=== PATIENT | female | born 1990 | race Caucasian/White ===

== ENCOUNTER 2018-06-04 15:53 | Outpatient (CLI) | payer BC, SELFPAY ==
[2018-06-04 20:14] LABS: TSH (W/Ref FT4) 1.22 uIU/mL (0.358-3.74)
[2018-06-04 20:42] LABS: HCG Quant, Pregnancy < 1 mIU/mL (1-3)
== END 2018-06-04 16:13 ==
PROVIDERS: PCP Family Medicine; Visit Provider Nurse Practitioner Women's Health
DX: N93.9 Abnormal uterine and vaginal bleeding, unspecified (principal)
CPT/HCPCS: 36415; 84443; 84702

== ENCOUNTER 2018-06-17 01:22 | Outpatient (CLI) | payer BC, SELFPAY ==
--- NOTE | 2018-06-17 07:36 | DI.RAD_ITS ---
SYMPTOM/DIAGNOSIS: UTERINE TENDERNESS, ABNL UTERINE BLEEDING N85.2, N93.9, N94.9 HYPERTROPHY OF UTERUS PELVIC ULTRASOUND: Transabdominal and transvaginal examination was performed. The uterus measures 8.7 cm long x 3.8 cm AP x 5.2 cm transverse. The endometrium is thickened and irregular measuring 2.0 cm in thickness. There does appear to be no abnormal blood flow. The right ovary measures 4.8 x 3.2 x 3.6 cm. There is normal blood flow. No evidence of torsion seen. The left ovary measures 4.4 x 1.8 x 3.7 cm. Small follicular cysts are present. There is normal blood flow. No evidence of torsion. No free pelvic fluid or hydronephrosis is identified. IMPRESSION: Thickened irregular endometrial stripe measuring 2.0 cm. Follow up is recommended.
== END 2018-06-17 01:42 ==
PROVIDERS: PCP Family Medicine; Visit Provider Nurse Practitioner Women's Health
DX: N94.89 Other specified conditions associated with female genital organs and menstrual cycle (principal); N93.8 Other specified abnormal uterine and vaginal bleeding; N94.9 Unspecified condition associated with female genital organs and menstrual cycle; N85.2 Hypertrophy of uterus
CPT/HCPCS: 76830; 76856

== ENCOUNTER 2018-06-18 14:51 | Outpatient (CLI) | payer BC, SELFPAY ==
[2018-06-18 15:32] LABS: HCT 38.5 % (36.0-46.0); HGB 13.5 g/dL (12.0-15.5); Mean Corp. HGB Concentration 35.1 g/dL (32.0-36.0); Mean Corpuscular Hemoglobin 31.3 pg (27.0-33.0); Mean Corpuscular Volume 89.3 fL (80-95); Mean Platelet Volume 10.2 fL (8.0-11.0); Platelet Count 189 x1000/uL (130-400); RBC 4.31 m/cumm (4.00-5.20); RBC Distribution Width 14.1 % (11.7-14.6); White Blood Cell Count 13.45 k/cumm (4.4-10.8)
[2018-06-18 15:46] LABS: PTT Activated 23.6 sec (21.0-31.4)
[2018-06-18 16:14] LABS: TSH 0.87 uIU/mL (0.358-3.74)
[2018-06-18 16:26] LABS: HCG Qual (Serum) Negative
[2018-06-21 16:34] LABS: Coag Factor VIII Activity Assa 106 % (55 - 200); von Willebrand Factor Activity 65 % (55 - 200); von Willebrand Factor Ag 72 % (55 - 200)
== END 2018-06-18 15:11 ==
PROVIDERS: PCP Family Medicine; Visit Provider Obstetrics & Gynecology
DX: N92.1 Excessive and frequent menstruation with irregular cycle (principal)
CPT/HCPCS: 36415; 85027; 85240; 85245; 84443; 84703; 85246; 85247; 85730

== ENCOUNTER 2018-06-22 07:53 | Day surgery (SDC) | payer BC, SELFPAY ==
[2018-06-22 08:00] VITALS: BP 120/80; PULSE 80; RESP 17; TEMP 36.7; O2SAT 98
[2018-06-22] MEDS: Lactated Ringers 1,000 ML 125 ML IV (08:30)
[2018-06-22 08:57] LABS: HCT 39.1 % (36.0-46.0); HGB 13.6 g/dL (12.0-15.5)
[2018-06-22 09:43] LABS: HCG Qual (Serum) Negative
[2018-06-22] MEDS: Lidocaine 2% Multi-Dose 50 ML VIAL (10:30)
--- NOTE | 2018-06-22 10:44 | ENDOMET_PTH ---
PATIENT: Keysha Dhaliwal LOC: [facility] U#:[id number] AGE/SX: 28/F ROOM: RE06/22/[address]: Cynthia Garrido MD : 1990 BED: DIS: 06/22/2018 SPEC #: [id number] RECD: 06/22/18 12:43 STATUS: LIZETTE REQ #: [id number] PROSPER: 06/22/18 10:[address]: Cynthia Garrido DEPT: Surgical Specimen RECD BY: Rosalina Demarco ENTERED: 06/22/18 12:44 SP TYPE: Endomet OTHR DR: Delmi Acevedo Tissues: 1 - ENDOMETRIUM BX/CURRETTE Procedures: GROSS AND MICRO LEVEL 4 Comments: [id number]
[2018-06-22] MEDS: Silver Nitrate Stick 1 EACH (10:48)
--- NOTE | 2018-06-22 11:05 | PDOC.DSDIS_ITS ---
Discharge Plan Disposition Patient Disposition: HOME Condition: Stable Discharge Details Reason For Visit: NANDO Attending Provider: Cynthia Garrido Primary Care Provider: Delmi Acevedo Home Meds and New Rx's Prescriptions: Continued PNV cmb#[id number] fumarate-FA [] 1 EACH tablet 1 ea PO HS RF: 0 ibuprofen 600 MG tablet 600 mg PO Q6H PRN Qty: 60 RF: 1 famotidine [Pepcid AC] 10 MG tablet 10 mg PO DAILY RF: 0 Discontinued tranexamic acid 650 mg Tablet 650 mg PO TID RF: 0 Discharge Instructions Additional Instructions: Postoperative Instructions Outpatient Gynecology * Because there will be medication in your system for the next 24 hours, you may feel a little sleepy. Your coordination will be affected. Therefore: Do not drive or operate dangerous equipment for 24 hours. Do not drink alcoholic beverages for 24 hours (not even beer). Plan to go home and rest for the day. * Rest, drink liquids and eat lightly for the rest of the day. Do not plan to return to normal activity for two full days. Some women require 5-7 days to feel 100 percent. * Arrange to have someone stay with you for the rest of the day. You should arrange for child care center assistant director on the day of surgery. * If you have incisions, remove the bandage in 24 hours. * You may have a sore throat or hoarseness after surgery. This usually lasts a short time and is relieved by drinking liquids. If hoarseness persists longer than 24 hours, please contact the anesthesia department by calling the hospital. * Take Tylenol or Advil for cramping. If that does not work, you may be too active so try cutting back on your activities. You may use up to 3 Advil every (4) four to (6) six hours. Use the prescription medication in between doses of Advil if needed. * You should be able to urinate as usual following the surgery. * Any form of surgery can cause your menstrual cycle to become irregular. If you have had a D and C you may spot for a week after surgery and your next period will start in (4) four to (6) six weeks. * If you have had the sterilization procedure no follow-up appointment is necessary. For other procedures you need a follow-up appointment (4) four to (6) six weeks following surgery. Please call the office for an appointment. * If you had a Laparascopic procedure there are no restrictions on douching, tampons, intercourse or tub baths. If you had any vaginal procedure you may not use tampons, have intercourse or douche for 2 weeks. you may take a show er or bath. * Please report any of the following conditions or any questions regarding your condition to your doctor and the Day Surgery Unit: Increased drainage or foul smelling drainage. Temperature of 101 F or above. Excessive pain. * If you are unable to contact your doctor, contact the hospital at [phone]. * Continue all your regular medications unless directed otherwise. Revised 12/10/10 Stand Alone Forms: DSU Post Gynecology Surgery Referrals: Cytnhia Garrido [ [facility] STAFF PHYSICIAN] - Activity:: Activity as Tolerated Shower/Bathe:: 24 hours Diet:: As Tolerated Discharge Orders Discharge Orders: Discharge Order (Routine); Ordered 06/22/18 Ordered By: Cynthia Garrido
[2018-06-22 11:35] VITALS: BP 120/84; PULSE 70; RESP 16; TEMP 36.5; O2SAT 100
--- NOTE | 2018-06-22 12:08 | ROE_ITS ---
DATE OF PROCEDURE: June 22, 2018 PREOPERATIVE DIAGNOSIS: Dysfunctional uterine bleeding. POSTOPERATIVE DIAGNOSIS: Same. PROCEDURE: Operative hysteroscopy D and C SURGEON: Cynthia Garrido M.D. ANESTHESIA: Monitored Anesthesia Care COMPLICATIONS: None. ESTIMATED BLOOD LOSS: Less than 10 cc's FLUIDS: 600 cc's LR HYSTEROSCOPIC FLUID: Total hysteroscopic fluid use 300 cc's FINDINGS: Dense, proliferative endometrium without fibroid or polyp. SPECIMENS: Endometrial curettings. PROCEDURE: The patient was taken to the Operating Room where she was properly identified. She was t hen placed on the operating table in a dorsal supine position. Anesthesia was induced without diffic ulty. She was then placed in the dorsal lithotomy position, prepped and draped in a normal sterile f ashion. A formal time-out procedure was then performed, confirming patient and procedure. A Hartman c atheter was then used to drain the bladder of clear urine. A bivalved speculum was placed. The cervix was visualized, grasped on the anterior lip with a single -toothed tenaculum. A paracervical block with 2% lidocaine plain was made and the cervix was dilated with the Wilkins dilators to allow the introduction of the hysteroscope into the uterine cavity. Once the hysteroscope was introduced without difficulty into the uterine cavity, a thorough inspection en sued. Both ostia were seen. There was no evidence of fibroid or polyp, but there was a densely thic kened, proliferative endometrium. The hysteroscope was removed from the uterus. A sharp curettage w as then performed to a good cry. The endometrial curettings were sent to pathology for permanent audie luation. The tenaculum was removed from the anterior cervical lip. Silver nitrate and pressure was applied to achieve hemostasis. All equipment was removed from the vagina. Sponge, lap, needle and i nstrument counts were correct x 2. The patient was taken to recovery in stable condition. cc: Cynthia Garrido M.D.
== END 2018-06-22 11:56 | disposition home or self-care (01) ==
PROVIDERS: PCP Family Medicine; Visit Provider Obstetrics & Gynecology
PROC: 0UDB8ZZ Extraction of Endometrium, Via Natural or Artificial Opening Endoscopic (ICD-10-PCS; CPT 58558; principal; 2018-06-22 09:00)
DX: N93.8 Other specified abnormal uterine and vaginal bleeding (principal); N72 Inflammatory disease of cervix uteri
CPT/HCPCS: 58558; 36415; 86850; 86900; 86901; 88305; 84703; 85014; 85018; J1885; J2405

== ENCOUNTER 2018-08-09 16:07 | Outpatient (CLI) | payer BC, SELFPAY ==
[2018-08-09 17:00] LABS: HCG Quant, Pregnancy 139 mIU/mL (1-3)
== END 2018-08-09 16:27 ==
PROVIDERS: PCP Family Medicine; Visit Provider Obstetrics & Gynecology
DX: Z32.01 Encounter for pregnancy test, result positive (principal)
CPT/HCPCS: 36415; 84702

== ENCOUNTER 2018-08-11 15:27 | Outpatient (CLI) | payer BC, SELFPAY ==
[2018-08-11 16:59] LABS: HCG Quant, Pregnancy 357 mIU/mL (1-3)
== END 2018-08-11 15:47 ==
PROVIDERS: PCP Family Medicine; Visit Provider Obstetrics & Gynecology
DX: Z32.01 Encounter for pregnancy test, result positive (principal)
CPT/HCPCS: 36415; 84702

== ENCOUNTER 2018-09-10 00:27 | Outpatient (CLI) | payer BC, SELFPAY ==
--- NOTE | 2018-09-10 14:15 | DI.US_ITS ---
SYMPTOMS/DIAGNOSIS: BLEEDING 2 WEEKS AGO, ? VIABILITY, O20.9 OBSTETRICAL ULTRASOUND: Many abnormalities cannot be diagnosed. A normal exam does not exclude a congenital anomaly. Radiology No. [id number] LMP: Exam Date: 09/10/18 [facility] wks days on EDC ([facility]) Confirmed: HISTORY: PREDICTED GESTATIONAL AGE NUMBER 8+5 weeks with a range of week to weeks. 1 Determined by___1STUS___LMP___HISTORY PLACENTA PRESENTATION Grade Cephalic___ Anterior___Posterior___ Breech____ Right Left Transverse(head right___ Fundal___Low-lying___Previa___ Transverse(head left___ Varying BIOMETRY AMNIOTIC FLUID BPD: mm weeks Normal HC: mm weeks AC: mm weeks FL: mm weeks AMNIOTIC FLUID INDEX >26 WK CRL: 21 mm 8+5 weeks Cisterna Magna: mm CI: RUQ: LUQ Cerebellum: cm EFW: grams Percentile RLQ: LLQ Yolk Sac: 3 mm 8+5 weeks Total: cms Composite AGE= 8+5 wks EDC by US: 04/17/19 BIOPHYSICAL PROFILE ANATOMY IDENTIFIED SCORE 0/2 Heart: 4-Chamber___Rate:BPM 168 LVOT: RVOT: Amniotic Fluid(>2cms)____ Stomach: Kidneys: Respirations (>30 secs) Bladder: Post. Fossa: Body Flex/Extension 3 vessel cord: Ventricles: cord insertion: Lips:____ Extremity Flex/Extension spinal morphology: Nose: Total Score= Palate: NS=not seen COMMENTS: There is a single living intrauterine gestation. Estimated sonographic age is 8 weeks 5 days based on crown-rump length. heart rate is 168 beats per minute. The yolk sac was visualized and is unremarkable. There does appear to be a small subchorionic hemorrhage at the posterior and right aspect of the gestational sac. Both ovaries were visualized and are grossly unremarkable. IMPRESSION: 1. Single living intrauterine gestation. Estimated sonographic age is 8 weeks 5 days. 2. Small subchorionic hemorrhage.
== END 2018-09-10 00:47 ==
PROVIDERS: PCP Family Medicine; Visit Provider Obstetrics & Gynecology
DX: O20.8 Other hemorrhage in early pregnancy (principal); Z34.91 Encounter for supervision of normal pregnancy, unspecified, first trimester
CPT/HCPCS: 76801

== ENCOUNTER 2018-09-28 10:56 | Outpatient (CLI) | payer BC, SELFPAY ==
[2018-09-28 11:13] LABS: Kit/Specimen SENT
[2018-09-28 11:20] LABS: Abs Immature Grans 0.02 k/cumm (0.0-0.09); Absolute Basophil Count 0.01 k/cumm (0.0-0.2); Absolute Eosinophil Count 0.06 k/cumm (0.0-0.7); Absolute Monocyte Count 0.52 k/cumm (0.11-0.7); Absolute Neutrophil Count 7.81 k/cumm (1.2-6.7); Basophils % 0.1; Eosinophils % 0.6; HCT 38.7 % (36.0-46.0); Immature Grans % 0.2; Lymphocytes % 15.1; Mean Corp. HGB Concentration 36.2 g/dL (32.0-36.0); Mean Corpuscular Hemoglobin 30.6 pg (27.0-33.0); Mean Corpuscular Volume 84.7 fL (80-95); Mean Platelet Volume 10.1 fL (8.0-11.0); Monocytes % 5.2; Neutrophils % 78.8; Platelet Count 200 x1000/uL (130-400); RBC 4.57 m/cumm (4.00-5.20); RBC Distribution Width 12.8 % (11.7-14.6); White Blood Cell Count 9.92 k/cumm (4.4-10.8)
[2018-09-28 12:23] LABS: TSH (W/Ref FT4) 0.92 uIU/mL (0.358-3.74)
[2018-09-29 11:22] LABS: Hepatitis B Surface Ag Negative (NEGAT)
[2018-09-29 11:31] LABS: Hepatitis C Ab w Rflx HCV PCR Negative (NEGAT)
[2018-09-29 11:32] LABS: HIV-1/2 Ag & Ab Screen Negative (NEGAT)
[2018-09-29 11:54] LABS: Rubella IgG Ab (UVM) Positive; Syphilis Serology (RPR) Negative (Negative)
== END 2018-09-28 11:16 ==
PROVIDERS: PCP Family Medicine; Visit Provider Advanced Practice Midwife
DX: Z34.91 Encounter for supervision of normal pregnancy, unspecified, first trimester (principal); Z11.59 Encounter for screening for other viral diseases; Z01.84 Encounter for antibody response examination; Z11.4 Encounter for screening for human immunodeficiency virus [HIV]; Z36.89 Encounter for other specified antenatal screening
CPT/HCPCS: 36415; 80055; 86803; 86850; 86900; 86901; 87340; 87389; 84443; 86592; 86762

== ENCOUNTER 2018-09-28 12:35 | Outpatient (REF) | payer BC, SELFPAY ==
[2018-09-28 14:45] LABS: *AMPHETAMINES SCREEN URINE Negative (Negative); *BARBITURATES SCREEN URINE Negative (Negative); *BENZODIAZEPINES SCREEN URINE Negative (Negative); Cannabinoids THC Negative (Negative); Cocaine Screen,Urine Negative (Negative); METHADONE URINE SCREEN Negative (Negative); OPIATES URINE SCREEN Negative (Negative)
[2018-09-28 14:47] LABS: Tricyclic Antidepressants Negative (Negative)
[2018-10-01 19:31] LABS: Buprenorphine Negative; Norbuprenorphine Negative
== END 2018-09-28 12:55 ==
LOC: LBN 12:35
PROVIDERS: PCP Family Medicine; Visit Provider Advanced Practice Midwife
DX: Z34.91 Encounter for supervision of normal pregnancy, unspecified, first trimester (principal)
CPT/HCPCS: 80307; 87086

== ENCOUNTER 2018-11-16 00:30 | Outpatient (CLI) | payer BC, SELFPAY ==
--- NOTE | 2018-11-16 14:58 | DI.US_ITS ---
SYMPTOMS/DIAGNOSIS: SURVEY OB ULTRASOUND: Comparison is made with [id number]. The fetus was in variable position during the exam. The placenta is anterior. The biometric measurements correspond to 18 weeks 6 days and EDC of [id number]. No abnormalities are seen. The amniotic fluid amount appears normal. IMPRESSION: survey is within normal limits. Predicted Gestational Age: Indication/History: survey 18+2 Wks Range: 17+2 to 19+2 Prior US done on: Determined by: First US LMP History EDC by prior US: For multiple gestations: Baby PLACENTA: Grade: I Location: Anterior X Posterior PRESENTATION: RT LT LOW LYING PREVIA Cephalic Trans (Head RT LT ) Varied X Breech BIOMETRY: Anatomy Identified: BPD: 43 mm 19 wks 4 chamber Heart X Heart Rate 147 BPM HC: 166 mm 19+2 wks LVOT X Post Fossa X AC: 130 mm 18+4 wks RVOT X Ventricles X FL: 28 mm 18+5 wks Stomach X Nose X Bladder X Lips X Cisterna Magna: 3 mm CI: 78 Kidneys X Palate X Cerebellum: 1.9 mm 3 vessel cord X Spine X EFW: 253 grms 71% Cord Insertion X NS= not seen Composite Age (US) 18+6 wks Many abnormalities cannot be diagnosed. A normal exam does not exclude congenital abnormality. EDC by US 04/23/19 Amniotic Fluid Index: Normal COMMENTS: RUQ: LUQ: RLQ: LLQ: Total: cm Biophysical Profile: Score 0/2 JULIO C (>2cm) Respirations (>30 sec) Body flexion/extension Extremity flexion/extension TOTAL SCORE
== END 2018-11-16 00:50 ==
PROVIDERS: PCP Family Medicine; Visit Provider Advanced Practice Midwife
DX: Z34.92 Encounter for supervision of normal pregnancy, unspecified, second trimester (principal)
CPT/HCPCS: 76805

== ENCOUNTER 2018-11-17 15:49 | Outpatient (CLI) | payer BC, SELFPAY ==
[2018-11-19 17:29] LABS: Calculated age at EDD 29 years; Cigarette smoking status non-smoker; GA used in risk estimate Scan estimate; IVF Pregnancy No; Initial or repeat testing Initial testing; Insulin dependent diabetes No; Maternal Weight 160 lbs; Number of Fetuses 1; Physician Phone Number 802-748-7300; Prev Pregnancy w/NTD No; RECOMMENDED FOLLOW UP None.; Results Summary Normal risk
== END 2018-11-17 16:09 ==
PROVIDERS: PCP Family Medicine; Visit Provider Advanced Practice Midwife
DX: Z34.92 Encounter for supervision of normal pregnancy, unspecified, second trimester (principal); Z36.89 Encounter for other specified antenatal screening
CPT/HCPCS: 36415; 82105

== ENCOUNTER 2018-12-20 13:22 | Outpatient (CLI) | payer BC, SELFPAY ==
--- NOTE | 2018-12-20 14:06 | PDOC.ANES ---
Date of service: 12/20/18 Time of Service: 13:30 Anesthesia Note Report Anesthesia Note: Asked to see Keysha regarding appropriateness for her to have TOLAC is desired. After chatting with her and discussion options and evaluating her, I think that she is an appropriate candidate for TOLAC.
== END 2018-12-20 13:42 ==
PROVIDERS: PCP Family Medicine; Visit Provider Advanced Practice Midwife
DX: Z01.818 Encounter for other preprocedural examination (principal)

== ENCOUNTER 2019-01-17 07:29 | Outpatient (CLI) | payer BC, SELFPAY ==
[2019-01-17 13:16] LABS: HCT 36.4 % (36.0-46.0); HGB 13.1 g/dL (12.0-15.5); Mean Corpuscular Hemoglobin 31.6 pg (27.0-33.0); Mean Corpuscular Volume 87.7 fL (80-95); Mean Platelet Volume 10.6 fL (8.0-11.0); Platelet Count 145 x1000/uL (130-400); RBC 4.15 m/cumm (4.00-5.20); RBC Distribution Width 13.6 % (11.7-14.6)
[2019-01-17 13:24] LABS: Glucose,1 Hr (Glucola) 145 mg/dL (80-140)
== END 2019-01-17 07:49 ==
PROVIDERS: Advanced Practice Midwife; PCP Family Medicine; Visit Provider Advanced Practice Midwife
DX: Z34.93 Encounter for supervision of normal pregnancy, unspecified, third trimester (principal)
CPT/HCPCS: 36415; 82950; 85027

== ENCOUNTER 2019-01-21 02:42 | Outpatient (CLI) | payer BC, SELFPAY ==
[2019-01-21 09:31] LABS: Glucose 1 Hour 159 mg/dL
[2019-01-21 13:13] LABS: Glucose 3 Hour 158 mg/dL
== END 2019-01-21 03:02 ==
PROVIDERS: PCP Family Medicine; Visit Provider Advanced Practice Midwife
DX: Z34.93 Encounter for supervision of normal pregnancy, unspecified, third trimester (principal)
CPT/HCPCS: 36415; 82951

== ENCOUNTER 2019-01-25 11:33 | Outpatient (CLI) | payer BC, SELFPAY ==
--- NOTE | 2019-01-25 12:45 | DIABASSESS_ITS ---
DESCRIPTION/ASSESSMENT: Keysha Dhaliwal presents newly diagnosed with gestational diabetes with elevated blood sugars at 2 and 3 hours. Self reported weight gain 15# over 28 weeks. Her only other child weighed 9 pounds at . Keysha has cut out most carbs since this diagnosis. She drinks no soda, eats no white starch. She has bread and fruit for breakfast; soy yogurt for snack, salad with leftover and fruit for lunch; meat, vegetable, starch for supper. She might have a cracker in evening. She does stairs at the school, all day but does no regular planned physical activity. INTERVENTION: Reviewed gestational diabetes food guidelines per protocol and she is able to problem solve meals. Discussed risks of diabetes to self and baby. Instructed in the use of One Touch glucometer and she is able to return demonstration with random blood sugar 96 2 hours after cucumber, cheese, chicken and carrots. Reviewed monitoring schedule and target blood sugars. Discussed benefits of regular physical activity to manage hyperglycemia. ACTION PLAN: She will follow protocol and send in blood sugar records Mondays Individual MNT __2__ units billed No DM group education series being offered at this time. Thursday Blood Sugar Report 01/31/19 Date fasting 1hr B 1 hr L 1 hr S 01/25 85 100 107 01/26 86 119 96 90 01/27 91 130 105 131 01/28 99* 125 113 108 01/29 95 106 102 101 01/30 93 89 88 104 01/31 98* 103 104 01/31/19 by email.*Aware. Believes it is because she ate late. She will watch this.
== END 2019-01-25 11:53 ==
PROVIDERS: PCP Family Medicine; Visit Provider Dietitian, Registered
DX: O24.410 Gestational diabetes mellitus in pregnancy, diet controlled (principal); Z3A.27 27 weeks gestation of pregnancy; Z71.3 Dietary counseling and surveillance
CPT/HCPCS: G0108

== ENCOUNTER 2019-03-18 01:34 | Outpatient (CLI) | payer BC, SELFPAY ==
--- NOTE | 2019-03-18 14:31 | DI.US_ITS ---
SYMPTOMS/DIAGNOSIS: GESTATIONAL DIABETES, Z34.90, SUPERVISION OF NORMAL OB ULTRASOUND: Predicted Gestational Age: Indication/History: 35+5 Wks Range: 34+5 to 36+5 Prior US done on: 11/16/18 Determined by: First US LMP History EDC by prior US: 04/13/19 For multiple gestations: Baby PLACENTA: Grade: II Location: X Anterior Posterior PRESENTATION: RT LT LOW LYING PREVIA Cephalic X Trans (Head RT LT ) Varied Breech BIOMETRY: Anatomy Identified: BPD: 90 mm 36+4 wks 4- chamber Heart X Heart Rate BPM HC: 328 mm 37+2 wks LVOT Post Fossa AC: 322 mm 36+1 wks RVOT Ventricles FL: 70 mm 36+0 wks Stomach X Nose Bladder Lips Cisterna Magna: mm CI: 80 Kidneys Palate Cerebellum: mm 3-vessel cord Spine EFW: 2890 grms 65% Cord Insertion NS= not seen Composite Age (US) 36+4 wks Many abnormalities cannot be diagnosed. A normal exam does not exclude congenital abnormality. EDC by US: 04/11/19 Amniotic Fluid Index: Normal COMMENTS: RUQ: 4.55 LUQ: 3.71 RLQ: 4.75 LLQ: 3.80 Total: 16.8 cm Biophysical Profile: Score 0/2 JULIO C (>2cm) Respirations (>30 sec) Body flexion/extension Extremity flexion/extension TOTAL SCORE RADIOLOGIST COMMENTS: Comparison is made with November,. The fetus is in cephalic position. The placenta is anterior. The biometric measurements correspond to 36 weeks 4 days. The estimated weight is 2890 g, corresponding to the 65th percentile. The amniotic fluid index is normal at 16.8. IMPRESSION: size and weight are within the expected range.
== END 2019-03-18 01:54 ==
PROVIDERS: PCP Family Medicine; Visit Provider Advanced Practice Midwife
DX: O24.419 Gestational diabetes mellitus in pregnancy, unspecified control (principal); Z3A.36 36 weeks gestation of pregnancy
CPT/HCPCS: 76816

== ENCOUNTER 2019-03-18 17:28 | Outpatient (REF) | payer BC, SELFPAY ==
[2019-03-18 19:02] LABS: *AMPHETAMINES SCREEN URINE Negative (Negative); *BARBITURATES SCREEN URINE Negative (Negative); *BENZODIAZEPINES SCREEN URINE Negative (Negative); Cannabinoids THC Negative (Negative); Cocaine Screen,Urine Negative (Negative); METHADONE URINE SCREEN Negative (Negative); OPIATES URINE SCREEN Negative (Negative)
[2019-03-18 19:15] LABS: Tricyclic Antidepressants Negative (Negative)
[2019-03-24 09:50] LABS: Buprenorphine Negative
== END 2019-03-18 17:48 ==
LOC: LBN 17:28
PROVIDERS: PCP Family Medicine; Visit Provider Advanced Practice Midwife
DX: Z34.93 Encounter for supervision of normal pregnancy, unspecified, third trimester (principal); Z36.85 Encounter for antenatal screening for Streptococcus B
CPT/HCPCS: 80307; 87081

== ENCOUNTER 2019-03-22 15:58 | Outpatient (CLI) | payer BC, SELFPAY | END 2019-03-22 16:18 | PROVIDERS: PCP Family Medicine; Visit Provider Advanced Practice Midwife | DX: O24.419 Gestational diabetes mellitus in pregnancy, unspecified control (principal); Z3A.36 36 weeks gestation of pregnancy | CPT/HCPCS: 59025 ==

== ENCOUNTER 2019-03-25 16:34 | Outpatient (CLI) | payer BC, SELFPAY | END 2019-03-25 16:54 | PROVIDERS: PCP Family Medicine; Visit Provider Advanced Practice Midwife | DX: O24.419 Gestational diabetes mellitus in pregnancy, unspecified control (principal); Z3A.36 36 weeks gestation of pregnancy | CPT/HCPCS: 59025 ==

== ENCOUNTER 2019-03-29 14:18 | Outpatient (CLI) | payer BC, SELFPAY | END 2019-03-29 14:38 | PROVIDERS: PCP Family Medicine; Visit Provider Advanced Practice Midwife | DX: O13.3 Gestational [pregnancy-induced] hypertension without significant proteinuria, third trimester (principal); O24.410 Gestational diabetes mellitus in pregnancy, diet controlled; Z3A.37 37 weeks gestation of pregnancy | CPT/HCPCS: 59025 ==

== ENCOUNTER 2019-04-01 15:28 | Outpatient (CLI) | payer BC, SELFPAY | END 2019-04-01 15:48 | PROVIDERS: PCP Family Medicine; Visit Provider Advanced Practice Midwife | DX: O24.410 Gestational diabetes mellitus in pregnancy, diet controlled (principal); Z3A.37 37 weeks gestation of pregnancy | CPT/HCPCS: 59025 ==

== ENCOUNTER 2019-04-05 12:46 | Outpatient (CLI) | payer BC, SELFPAY | END 2019-04-05 13:06 | PROVIDERS: PCP Family Medicine; Visit Provider Advanced Practice Midwife | DX: O24.113 Pre-existing type 2 diabetes mellitus, in pregnancy, third trimester (principal); Z3A.38 38 weeks gestation of pregnancy; Z79.4 Long term (current) use of insulin | CPT/HCPCS: 59025 ==

== ENCOUNTER 2019-04-08 09:11 | Outpatient (CLI) | payer BC, SELFPAY | END 2019-04-08 09:31 | PROVIDERS: PCP Family Medicine; Visit Provider Advanced Practice Midwife | DX: O24.415 Gestational diabetes mellitus in pregnancy, controlled by oral hypoglycemic drugs (principal); Z79.84 Long term (current) use of oral hypoglycemic drugs; Z3A.38 38 weeks gestation of pregnancy | CPT/HCPCS: 59025 ==

== ENCOUNTER 2019-04-12 08:28 | Outpatient (CLI) | payer BC, SELFPAY | END 2019-04-12 08:48 | PROVIDERS: PCP Family Medicine; Visit Provider Advanced Practice Midwife | DX: O24.415 Gestational diabetes mellitus in pregnancy, controlled by oral hypoglycemic drugs (principal); Z3A.39 39 weeks gestation of pregnancy; Z79.84 Long term (current) use of oral hypoglycemic drugs | CPT/HCPCS: 59025 ==

== ENCOUNTER 2019-04-13 22:13 | Inpatient (IN) | payer BC, SELFPAY ==
[2019-04-13 22:42] LABS: HCT 40.3 % (36.0-46.0); HGB 14.3 g/dL (12.0-15.5); Mean Corp. HGB Concentration 35.5 g/dL (32.0-36.0); Mean Corpuscular Hemoglobin 31.7 pg (27.0-33.0); Mean Corpuscular Volume 89.4 fL (80-95); Mean Platelet Volume 11.2 fL (8.0-11.0); Platelet Count 142 x1000/uL (130-400); RBC 4.51 m/cumm (4.00-5.20); RBC Distribution Width 13.7 % (11.7-14.6)
[2019-04-14] VITALS (7 sets, daily range): BP systolic 92–112; BP diastolic 42–62; PULSE 106–135; RESP 16–22; TEMP 36.3–36.4; O2SAT 100
[2019-04-14] MEDS: MORPHine 2 MG/ML SYR IVP (05:21)
[2019-04-14] MEDS: Lactated Ringers 1,000 ML 1000 ML IV ×2 (05:48→08:20)
[2019-04-14] MEDS: FentaNYL/ROPIvacaine 2 mcg/ml and 0.1% 200 ML CADD Cassette EP (06:30)
[2019-04-14] MEDS: Bupivacaine 0.25% Pres-Free 30 ML VIAL (09:48)
[2019-04-14] MEDS: Lactated Ringers 1,000 ML 30 ML IV (11:55)
[2019-04-14] MEDS: Bupivacaine 0.5% Pres-Free 30 ML VIAL (12:17)
[2019-04-14] MEDS: Ketorolac 30 MG/ML VIAL IVP ×2 (13:30→19:17)
[2019-04-15] MEDS: Ketorolac 30 MG/ML VIAL IVP ×2 (02:18→07:48)
[2019-04-15 07:09] LABS: HCT 26.1 % (36.0-46.0); Mean Corp. HGB Concentration 34.5 g/dL (32.0-36.0); Mean Corpuscular Hemoglobin 32.1 pg (27.0-33.0); Mean Corpuscular Volume 93.2 fL (80-95); Mean Platelet Volume 11.1 fL (8.0-11.0); Platelet Count 123 x1000/uL (130-400); RBC Distribution Width 13.7 % (11.7-14.6); White Blood Cell Count 10.03 k/cumm (4.4-10.8)
[2019-04-15 07:25] LABS: BUN 10 mg/dL (7-18); CREATININE 0.65 mg/dL (0.55-1.02); Calcium 8.4 mg/dL (8.5-10.1); Chloride 107 mmol/L (98-107); Glucose 85 mg/dL (70-100); Sodium 140 mmol/L (136-145)
--- NOTE | 2019-04-15 07:56 | PGE_ITS ---
Date of Service Date of service: 04/14/19 Time of Service: 14:00 Assessment and Plan Assessment and plan (1) Non-reassuring heart tones complicating , antepartum: Status: Acute Assessment and plan: I reviewed options with the patient. My recommendation at the time of this encounter was to proceed with emergent section. Risks of surgery have been reviewed with the patient including hemorrhage, infection and injury to other organs such as bowel bladder. All questions were answered to the patient's satisfaction and consent for surgery was obtained. (2) Failed trial labor: Status: Acute Subjective Subjective Interval history since last seen: Late entry note I was called to the bedside to evaluate the patient during second stage of labor. The tracing displayed rate of approximately 1 5160 bpm with absent variability and recurrent late decelerations. On exam station was noted to be -1 and ballotable. Little to no descent in station was noted during expulsive efforts. The station was too high to consider operative vaginal delivery. In addition the patient was noted to have a moderate amount of vaginal bleeding on exam. Exam Other: Cervical exam showed a slight anterior lip, -1 station, LOT position. Objective Objective Clinical Data: Abnormal lab results 04/15/19 04/15/19 Range/Units 06:27 06:27 RBC 2.80 L (4.00-5.20) m/cumm Hgb 9.0 L D (12.0-15.5) g/dL Hct 26.1 L D (36.0-46.0) % Plt Count 123 L (130-400) x1000/uL MPV 11.1 H (8.0-11.0) fL Calcium 8.4 L (8.5-10.1) mg/dL Vital Signs Temperature 97.3 F L 04/14/19 13:25 Pulse 108 H 04/14/19 13:25 Respiratory Rate 21 04/14/19 13:25 Blood Pressure 92/59 L 04/14/19 13:25 Pulse Oximetry 100 04/14/19 13:25 Respiratory End-tidal CO2 30 04/14/19 12:31 Oxygen Delivery Method Room Air 04/14/19 13:25 Oxygen Flow Rate 8 04/14/19 12:31 Pain Level 4 04/15/19 07:48 Intake & Output 04/14/19 04/14/19 04/15/19 11:59 23:59 11:59 Intake Total 1000 / 3260 2260 / 3260 Output Total 1025 / 1025 Balance 1000 / 2235 1235 / 2235 Intake: IV 1000 / 3060 2060 / 3060 Oral 200 / 200 Output: Urine 125 / 125 Estimated Blood Loss 900 / 900 Other: Urine Color Dark Betzy [place] Urine Appearance Cloudy Sediment Comment SURGEON AWARE OF URINE COLOR/STATUS Emesis Description None Laboratory Results WBC 10.03 k/cumm (4.4-10.8) 04/15/19 06:27 RBC 2.80 m/cumm (4.00-5.20) L 04/15/19 06:27 Hgb 9.0 g/dL (12.0-15.5) L D 04/15/19 06:27 Hct 26.1 % (36.0-46.0) L D 04/15/19 06:27 MCV 93.2 fL (80-95) 04/15/19 06:27 MCH 32.1 pg (27.0-33.0) 04/15/19 06:27 MCHC 34.5 g/dL (32.0-36.0) 04/15/19 06:27 RDW 13.7 % (11.7-14.6) 04/15/19 06:27 Plt Count 123 x1000/uL (130-400) L 04/15/19 06:27 MPV 11.1 fL (8.0-11.0) H 04/15/19 06:27 Sodium 140 mmol/L (136-145) 04/15/19 06:27 Potassium 4.0 mmol/L (3.5-5.1) 04/15/19 06:27 Chloride 107 mmol/L (98-107) 04/15/19 06:27 Carbon Dioxide 25.0 mmol/L (21.0-32.0) 04/15/19 06:27 Anion Gap 8.0 mmol/L (3-11) 04/15/19 06:27 BUN 10 mg/dL (7-18) 04/15/19 06:27 Creatinine 0.65 mg/dL (0.55-1.02) 04/15/19 06:27 Estimated GFR/1.73 m2 >= 60.00 (mL/min/1.73m2) 04/15/19 06:27 Glucose 85 mg/dL (70-100) 04/15/19 06:27 Calcium 8.4 mg/dL (8.5-10.1) L 04/15/19 06:27 Patient ABO/Rh A Positive 04/13/19 22:30 Antibody Screen Negative 04/13/19 22:30
[2019-04-15] MEDS: Lactated Ringers 1,000 ML 30 ML IV (07:57)
--- NOTE | 2019-04-15 08:00 | W.PM.PROGNOT ---
Date of Service Date of service: 04/15/19 Time of Service: 08:00 Assessment and Plan Assessment and plan (1) Failed trial labor: Status: Acute (2) Status post emergency section: Status: Acute Assessment and plan: Postoperative day #1. Doing well. Plan to remove Hartman catheter. Encourage ambulation. The patient may shower today. Hemoglobin this morning was 9 and we will start her on iron supplement. Otherwise continue routine care. Subjective Subjective Interval history since last seen: Doing well. Pain is well controlled with a Dilaudid EXTRUSION DIE CORRECTOR. She has not yet been ambulatory. Hartman catheter remains in place. Tolerating regular diet. No nausea vomiting. Exam GI Other: Abdomen is soft and appropriately tender. Dressing remains in place. Other: Hartman catheter draining concentrated urine. Objective Objective Clinical Data: Abnormal lab results 04/15/19 04/15/19 Range/Units 06:27 06:27 RBC 2.80 L (4.00-5.20) m/cumm Hgb 9.0 L D (12.0-15.5) g/dL Hct 26.1 L D (36.0-46.0) % Plt Count 123 L (130-400) x1000/uL MPV 11.1 H (8.0-11.0) fL Calcium 8.4 L (8.5-10.1) mg/dL Vital Signs Temperature 97.3 F L 04/14/19 13:25 Pulse 108 H 04/14/19 13:25 Respiratory Rate 21 04/14/19 13:25 Blood Pressure 92/59 L 04/14/19 13:25 Pulse Oximetry 100 04/14/19 13:25 Respiratory End-tidal CO2 30 04/14/19 12:31 Oxygen Delivery Method Room Air 04/14/19 13:25 Oxygen Flow Rate 8 04/14/19 12:31 Pain Level 4 04/15/19 07:48 Intake & Output 04/14/19 04/14/19 04/15/19 11:59 23:59 11:59 Intake Total 1000 / 3560 2560 / 3560 Output Total 1025 / 1025 Balance 1000 / 2535 1535 / 2535 Intake: IV 1000 / 3360 2360 / 3360 Oral 200 / 200 Output: Urine 125 / 125 Estimated Blood Loss 900 / 900 Other: Urine Color Dark Betzy [place] Urine Appearance Cloudy Sediment Comment SURGEON AWARE OF URINE COLOR/STATUS Emesis Description None Laboratory Results WBC 10.03 k/cumm (4.4-10.8) 04/15/19 06:27 RBC 2.80 m/cumm (4.00-5.20) L 04/15/19 06:27 Hgb 9.0 g/dL (12.0-15.5) L D 04/15/19 06:27 Hct 26.1 % (36.0-46.0) L D 04/15/19 06:27 MCV 93.2 fL (80-95) 04/15/19 06:27 MCH 32.1 pg (27.0-33.0) 04/15/19 06:27 MCHC 34.5 g/dL (32.0-36.0) 04/15/19 06:27 RDW 13.7 % (11.7-14.6) 04/15/19 06:27 Plt Count 123 x1000/uL (130-400) L 04/15/19 06:27 MPV 11.1 fL (8.0-11.0) H 04/15/19 06:27 Sodium 140 mmol/L (136-145) 04/15/19 06:27 Potassium 4.0 mmol/L (3.5-5.1) 04/15/19 06:27 Chloride 107 mmol/L (98-107) 04/15/19 06:27 Carbon Dioxide 25.0 mmol/L (21.0-32.0) 04/15/19 06:27 Anion Gap 8.0 mmol/L (3-11) 04/15/19 06:27 BUN 10 mg/dL (7-18) 04/15/19 06:27 Creatinine 0.65 mg/dL (0.55-1.02) 04/15/19 06:27 Estimated GFR/1.73 m2 >= 60.00 (mL/min/1.73m2) 04/15/19 06:27 Glucose 85 mg/dL (70-100) 04/15/19 06:27 Calcium 8.4 mg/dL (8.5-10.1) L 04/15/19 06:27 Patient ABO/Rh A Positive 04/13/19 22:30 Antibody Screen Negative 04/13/19 22:30
--- NOTE | 2019-04-15 08:03 | W.PM.OP ---
Date of service: 04/14/19 Time of Service: 14:00 Operative Note Operative Note DATE OF PROCEDURE: 04/14/19 PRE-OP DIAGNOSIS: Term IUP. NRFHTs during second stage of labor. Prior section. POST-OP DIAGNOSIS: same PROCEDURE: Stat RLTCS SURGEON: Rolando Lyn ASSISTING SURGEON: Eliseo Power ANESTHESIA: GETA ESTIMATED BLOOD LOSS: 900 PATHOLOGY: none sent COMPLICATIONS: None Patient was transported to: PACU Patient's condition: stable Findings: 1. Moderate uterine atony 2. Delivered LBM 8,9 Procedure Description: The patient was taken to the operating room and after an attempted spinal anesthesia procedure was converted to general anesthesia due to the emergent nature of the case. The patient had been prepped and draped in usual sterile manner. A Pfannenstiel skin incision was then made through previous incision and carried down to the underlying layer of fascia. The fascia was incised with a scalpel and then extended laterally in either direction with blunt digital dissection. The fascia was dissected off the underlying layer rectus muscles using sharp dissection. The rectus muscles were divided sharply along the linea alba and the peritoneum was entered sharply. Peritoneal incision was extended superior and inferiorly with sharp dissection. The vesicouterine flap was scored with a scalpel and the bladder flap was then developed digitally. The lower uterine segment was incised in a transverse manner and extended laterally in either direction via stretch. Infant was found in cephalic presentation, LOT position. The infant was delivered atraumatically. Mouth and nose were suctioned, the cord was cut. The infant was handed off to the waiting rail switchman. The uterus was exteriorized. The uterus was cleared of all clots and debris. The hysterotomy was closed with a running lock stitch of #1 chromic. A second imbricating layer of #1 chromic in a Lambert stitch was used to complete the repair and achieve hemostasis. A single [id number] suture at the midline of the hysterotomy was also needed to achieve hemostasis. The cul-de-sac was cleared of all clots and debris. The uterus was returned to the abdomen. The gutters were cleared of all clots and debris. The peritoneum was closed with a running stitch of 2-0 Vicryl. The subfascial space was thoroughly inspected and was noted to be hemostatic. The fascia was closed with a running stitch of 0 Vicryl. The subcutaneous tissues were closed with interrupted sutures of 3-0 Vicryl. The skin was closed with a running subcuticular stitch of 4 Monocryl and Dermabond was applied. The procedure was concluded at this point. Sponge, lap, needle and instrument counts were correct at the conclusion of the procedure. The patient was extubated and transferred to PACU in stable condition.
[2019-04-15] MEDS: oxyCODONE 5 mg/Acetaminophen 325 mg TAB PO ×4 (12:29→20:30)
[2019-04-15] MEDS: Ibuprofen 600 MG TAB PO ×2 (15:50→22:00)
[2019-04-15] MEDS: Docusate Sodium 100 MG CAP PO (16:41)
[2019-04-15] MEDS: Ferrous Sulfate 325 MG TAB PO (22:00)
[2019-04-16] MEDS: Acetaminophen 325 MG TAB 650 MG PO (00:45)
[2019-04-16] MEDS: Ibuprofen 600 MG TAB PO ×3 (04:00→22:43)
[2019-04-16] MEDS: Cyclobenzaprine 10 MG TAB 5 MG PO ×4 (04:45→20:00)
[2019-04-16] MEDS: oxyCODONE 5 mg/Acetaminophen 325 mg TAB PO (07:36)
[2019-04-16] MEDS: Docusate Sodium 100 MG CAP PO ×2 (07:37→20:00)
[2019-04-16] MEDS: Ferrous Sulfate 325 MG TAB PO ×2 (07:37→20:00)
[2019-04-16] MEDS: Ascorbic Acid 500 MG TAB PO ×2 (08:27→20:00)
[2019-04-16] MEDS: Normal Saline Flush 10 ML SYR IVP ×2 (09:47→17:57)
[2019-04-16] MEDS: MAGNESIUM SULFATE 2 GM/50 ML BAG IVPB (09:48)
[2019-04-16] MEDS: ACETAMINOPHEN 1,000 MG/100 ML BTL 400 MG IVPB ×2 (12:51→17:54)
[2019-04-16] MEDS: Normal Saline 500 ML 30 ML IV (13:29)
--- NOTE | 2019-04-16 13:34 | ANES_ITS ---
Anesthesia Note Request by to speak with Ms. Dhaliwal re: pain. Pt reposts soreness all over my body, with no specific location of the most pain. Further reports that she has received some satisfactory results from Magnesium gtt ordered by Dr. Lyn this AM. Pt is currently standing in doorway of the bathroom unsupported. She is on her way to take a shower which she is sure will make her feel much better. Discussed the possibility of the Succinylcholine being the source of her soreness as well as the activities of labor/pushing being a contributing factor. We further discussed adding Ofirmev to her PRN analgesia regimine. At this time she has been maxed out on Toradol. Instructed the RN and pt to seek me out for additional questions or therapies. I will be budget consultant this weekend.
[2019-04-17] MEDS: Ibuprofen 600 MG TAB PO ×2 (05:20→11:15)
[2019-04-17] MEDS: ACETAMINOPHEN 1,000 MG/100 ML BTL 400 MG IVPB ×2 (06:00)
--- NOTE | 2019-04-17 08:14 | W.PM.PROGNOT ---
Date of Service Date of service: 04/17/19 Time of Service: 08:14 Assessment and Plan Assessment and plan (1) Status post emergency section: Status: Acute Assessment and plan: Doing well. Making satisfactory postoperative progress. Plan for discharge home today. Subjective Subjective Interval history since last seen: Doing well. Pain well controlled. Ambulatory Tolerating regular diet. Myalgias continue to improve. Objective Objective Clinical Data: Vital Signs Temperature 97.3 F L 04/14/19 13:25 Pulse 108 H 04/14/19 13:25 Respiratory Rate 21 04/14/19 13:25 Blood Pressure 92/59 L 04/14/19 13:25 Pulse Oximetry 100 04/14/19 13:25 Respiratory End-tidal CO2 30 04/14/19 12:31 Oxygen Delivery Method Room Air 04/14/19 13:25 Oxygen Flow Rate 8 04/14/19 12:31 Pain Level 5 04/16/19 17:54 Intake & Output 04/16/19 04/16/19 04/17/19 11:59 23:59 11:59 Intake Total 2890 / 2890 200 / 200 Balance 2890 / 2890 200 / 200 Intake: IV 2890 / 2890 200 / 200 Laboratory Results WBC 10.03 k/cumm (4.4-10.8) 04/15/19 06:27 RBC 2.80 m/cumm (4.00-5.20) L 04/15/19 06:27 Hgb 9.0 g/dL (12.0-15.5) L D 04/15/19 06:27 Hct 26.1 % (36.0-46.0) L D 04/15/19 06:27 MCV 93.2 fL (80-95) 04/15/19 06:27 MCH 32.1 pg (27.0-33.0) 04/15/19 06:27 MCHC 34.5 g/dL (32.0-36.0) 04/15/19 06:27 RDW 13.7 % (11.7-14.6) 04/15/19 06:27 Plt Count 123 x1000/uL (130-400) L 04/15/19 06:27 MPV 11.1 fL (8.0-11.0) H 04/15/19 06:27 Sodium 140 mmol/L (136-145) 04/15/19 06:27 Potassium 4.0 mmol/L (3.5-5.1) 04/15/19 06:27 Chloride 107 mmol/L (98-107) 04/15/19 06:27 Carbon Dioxide 25.0 mmol/L (21.0-32.0) 04/15/19 06:27 Anion Gap 8.0 mmol/L (3-11) 04/15/19 06:27 BUN 10 mg/dL (7-18) 04/15/19 06:27 Creatinine 0.65 mg/dL (0.55-1.02) 04/15/19 06:27 Estimated GFR/1.73 m2 >= 60.00 (mL/min/1.73m2) 04/15/19 06:27 Glucose 85 mg/dL (70-100) 04/15/19 06:27 Calcium 8.4 mg/dL (8.5-10.1) L 04/15/19 06:27 Patient ABO/Rh A Positive 04/13/19 22:30 Antibody Screen Negative 04/13/19 22:30
--- NOTE | 2019-04-17 08:20 | DSE_ITS ---
Date of service: 04/17/19 Time of Service: 08:20 DS: Diagnosis Discharge Diagnosis (1) Status post emergency section: Status: Acute Discharge Plan Disposition Patient Disposition: HOME Condition: Good Discharge Details Reason For Visit: RULE OUT LABOR Admit Date/Time: 04/13/19 22:13 Admit Provider: Rolando Lyn Attending Provider: Rolando Lyn [facility] Hospital Course: The patient was admitted in active labor and desired a trial of labor following prior section. Due to NRFHTs she was taken for emergency section during second stage of labor. Postoperatively the patient did develop diffuse myalgias thought possibly to be related to succinylcholine. This improve d over the course of her hospital admission. By hospital day three she was meeting all postoperative milestones and felt suitable for discharge. Home Meds and New Rx's Prescriptions: New oxycodone-acetaminophen 5-325 mg Tablet 1 tab PO Q4H PRN PRNQty: 30 RF: 0 Continued blood builder PO DAILY RF: 0 metformin 500 mg tablet 500 mg PO BID Qty: 42 RF: 0 cholecalciferol (vitamin D3) 1,000 unit capsule 2,000 unit PO DAILY RF: 0 docusate sodium [Colace] 100 mg capsule 100 mg PO DAILY RF: 0 acetaminophen [Tylenol Extra Strength] 500 mg tablet 500 mg PO Q4H PRNRF: 0 PNV cmb#95-ferrous fumarate-FA [] 1 EACH tablet 1 ea PO HS RF: 0 famotidine [Pepcid AC] 10 mg tablet 10 mg PO DAILY RF: 0 Discharge Instructions Activity:: Avoid heavy lifting or strenuous activity. Equipment/Supplies:: No Equipment Needed Diet:: As Tolerated Discharge Orders Discharge Orders: Discharge Order (Routine); Ordered 04/17/19 Ordered By: Rolando Lyn DS: Summary Status at Discharge Functional status at discharge: independent ambulation Overall status at discharge: patient is not back to baseline Mental Status: mental status grossly normal Speech and Movement: speech and movement normal Mood: euthymic mood Affect: normal affect Exam Psych Mental Status: mental status grossly normal Speech and Movement: speech and movement normal Mood: euthymic mood Affect: normal affect DS: Data Vitals/I&O Vitals and I&O: Vital Signs Temperature 97.3 F L 10/10/19 13:25 Pulse 108 H 04/14/19 13:25 Respiratory Rate 21 04/14/19 13:25 Blood Pressure 92/59 L 04/14/19 13:25 Pulse Oximetry 100 04/14/19 13:25 Respiratory End-tidal CO2 30 04/14/19 12:31 Oxygen Delivery Method Room Air 04/14/19 13:25 Oxygen Flow Rate 8 04/14/19 12:31 Pain Level 5 04/16/19 17:54 Intake & Output 04/16/19 04/16/19 04/17/19 11:59 23:59 11:59 Intake Total 2890 / 2890 200 / 200 Balance 2890 / 2890 200 / 200 Intake: IV 2890 / 2890 200 / 200 PFSH Medical History (Updated 04/15/19 @ 07:59 by Rolando Lyn MD) Contraceptive management 02/2010 Mirena IUD. 01/18/14 IUD out. 05/2014 Nexplanon -BTB 06/21/14 OCPs but stopped secondary to H/A. Dyspareunia Migraine in college. LOC - w/u by neuro felt that it was migraine. No aura. OK'd for OCPs by [facility] neurology 06/2014. Surgical History (Updated 04/15/19 @ 08:01 by Rolando Lyn MD) section (06/08/17) LTCS. Arrest of descent after 6hrs pushing. F. 9lbs. KK H/O dilation and curettage (Acute) thumb surgery Tonsillectomy Family History (System 01/21/19 @ 10:56 by Jana Brown) Grandmother Myocardial infarction Mother Breast cancer Neg BRCA testing Father Thyroid cancer Grandfather Diabetes Maternal Uncle Crohns disease Social History (System 01/21/19 @ 10:56 by Jana Brown) Smoking/Tobacco Use Status: Never Drug use: Never History History 2 Para 1 Hx # Term Pregnancies 1 Multiple births Hx # Pregnancies Ectopic pregnancies AB induced Hx Number of Living Children 1 AB spontaneous Past Pregnancies Del. Date GA/Weeks # Outcome Route Wgt Sex Labor Lgth Anesthes ia Location Prov Complic 06/08/16 40 No Successful 9 lb 3 oz Female 25 Anea/Rashad Delivery Date: 06/08/16 On 09/28/18 @ 10:02 Jana Ward Long labor and C/S for FTP, fully dilated.
[2019-04-17] MEDS: Docusate Sodium 100 MG CAP PO (08:32)
[2019-04-17] MEDS: Ascorbic Acid 500 MG TAB PO (08:32)
[2019-04-17] MEDS: Ferrous Sulfate 325 MG TAB PO (08:32)
[2019-04-17] MEDS: Acetaminophen 325 MG TAB 650 MG PO (11:15)
== END 2019-04-17 12:05 | disposition home or self-care (01) | DRG 787 ==
PROVIDERS: Admitting Provider Obstetrics & Gynecology; PCP Family Medicine; Visit Provider Obstetrics & Gynecology
PROC: 10D00Z1 Extraction of Products of Conception, Low, Open Approach (ICD-10-PCS; CPT 59514; principal; 2019-04-14 11:00)
DX: O76 Abnormality in fetal heart rate and rhythm complicating labor and delivery (principal); M96.89 Other intraoperative and postprocedural complications and disorders of the musculoskeletal system; O66.41 Failed attempted vaginal birth after previous cesarean delivery; O34.211 Maternal care for low transverse scar from previous cesarean delivery; Z3A.39 39 weeks gestation of pregnancy; Z37.0 Single live birth; O24.425 Gestational diabetes mellitus in childbirth, controlled by oral hypoglycemic drugs; O63.1 Prolonged second stage (of labor); Y83.8 Other surgical procedures as the cause of abnormal reaction of the patient, or of later complication, without mention of misadventure at the time of the procedure; M79.10 Myalgia, unspecified site; Z67.10 Type A blood, Rh positive
CPT/HCPCS: 59620; 36415; 80048; 85027; 86850; 86900; 86901; 99233; 99239; J0131; J0690; J1100; J1170; J1885; J2250; J2270; J2405; J3490

== ENCOUNTER 2019-06-08 07:21 | Outpatient (CLI) | payer BC, SELFPAY ==
[2019-06-08 10:15] LABS: GTT Comment See Comments
== END 2019-06-08 07:41 ==
PROVIDERS: PCP Family Medicine; Visit Provider Obstetrics & Gynecology
DX: O24.419 Gestational diabetes mellitus in pregnancy, unspecified control (principal)
CPT/HCPCS: 36410; 82951

== ENCOUNTER 2020-08-17 13:31 | Outpatient (REF) | payer BC, SELFPAY ==
[2020-08-18 11:45] LABS: COVID-19 RT-PCR UVMMC Result Negative (Negative)
== END 2020-08-17 13:32 | disposition home or self-care (01) ==
LOC: NCHCN 13:31
PROVIDERS: PCP Family Medicine; Visit Provider Family Medicine
DX: J06.9 Acute upper respiratory infection, unspecified (principal)
CPT/HCPCS: U0003

== ENCOUNTER 2021-11-18 16:26 | Outpatient (REF) | payer BC, SELFPAY ==
--- NOTE | 2021-11-18 15:45 | PAPFT_PTH ---
PATIENT: Keysha Dhaliwal LOC: [facility] U#:[id number] AGE/SX: 31/F ROOM: RE11/18/[address]: CAILIN Davidson : 1990 BED: DIS: 11/18/2021 SPEC #: [id number] RECD: 11/19/21 12:57 STATUS: LIZETTE REQ #: [id number] PROSPER: 11/18/21 15:[address]: Yadira Schmitt DEPT: [facility] Cytology RECD BY: Rosalina Demarco ENTERED: 11/19/21 12:57 SP TYPE: PAPFT OTHR DR: Viktor Alvarez Tissues: 1 - CX/ENDOCX FOR PAP SMEARS Procedures: PAP THIN PREP/UVM Screening HPV DNA PROBE Comments: [id number]
== END 2021-11-18 16:27 | disposition home or self-care (01) ==
LOC: LBN 16:26
PROVIDERS: PCP Family Medicine; Visit Provider Nurse Practitioner Family
DX: Z12.4 Encounter for screening for malignant neoplasm of cervix (principal); Z11.51 Encounter for screening for human papillomavirus (HPV)
CPT/HCPCS: 88142; 87624

== ENCOUNTER 2022-06-30 15:19 | Day surgery (SDC) | payer BC, SELFPAY ==
[2022-06-30 15:26] VITALS: BP 137/107; PULSE 98; RESP 16; TEMP 37; O2SAT 98
--- NOTE | 2022-06-30 15:30 | DI.CT_ITS ---
Exam(s) CT ABDOMEN PELVIS W EXAM: CT ABDOMEN PELVIS W CLINICAL HISTORY: lower abd pain R>L, nausea vomiting. TECHNIQUE: Imaging Protocol: Axial computed tomography images with coronal and sagittal reformatted images were created and reviewed CONTRAST MATERIAL: Intravenous: Omnipaque-350 100cc Oral: None COMPARISON: No exams were available for comparison FINDINGS: VISUALIZED LUNG BASES: No nodules nor pleural effusions evident. ABDOMEN: There is no ascites. LIVER: There are no focal hepatic lesions evident . GALLBLADDER/BILIARY: No obvious gallbladder pathology. CBD is not dilated. PANCREAS: No evidence of pancreatic mass nor dilatation of the pancreatic duct. SPLEEN: Spleen is not enlarged. No obvious intrasplenic lesions. Splenic and portal veins are paten t. ADRENALS: There are no significant adrenal masses. KIDNEYS:No cysts evident. No solid renal masses. No calculi nor hydronephrosis.. ABDOMINAL AORTA: Abdominal aorta is not enlarged. LYMPH NODES:There is no retroperitoneal nor paraaortic adenopathy. ABDOMINAL WALL: No evidence of significant anterior abdominal wall nor inguinal hernia. GI: See below PELVIS: GI: The appendix is abnormally straight and thickened with diameter of 11 millimeters and with periap pendiceal streaking, findings consistent with acute appendicitis. There is no calcified appendicolit h. No abscess at this time. No free air. No evidence of sigmoid diverticulitis. LYMPH NODES: There is no intrapelvic nor inguinal adenopathy. REPRODUCTIVE: There is an IUD in satisfactory position in the endometrial canal. Both ovaries appear age-appropriate. No extraovarian adnexal masses. No free fluid in the cul-de-sac at this time. URINARY BLADDER: No calculi nor obvious masses evident OSSEOUS: No significant osseous lesions. IMPRESSION: 1. Findings are consistent with acute appendicitis. No obvious rupture at this time. No abscess. 2. IUD is in satisfactory position in the endometrial canal. No abnormal ovarian masses. RADIATION DOSE DELIVERED: 988.39mGy.cm Total DLP DATA REPOSITORY: All CT scans at this facility are submitted to the National Radiology Data Registry (NRDR) Dose Index Registry (DIR) with the [employer] (A[employer]). RADIATION OPTIMIZATION: All CT scans at this facility use at least one of these dose optimization te chniques: automated exposure control; mA and/or kV adjustment per patient size (includes targeted exa ms where dose is matched to clinical indication); or iterative reconstruction.
--- NOTE | 2022-06-30 15:41 | ED.GENADUL_ITS ---
Discharge Plan Disposition Patient Disposition: Admit to [facility] Condition: Stable Discharge Details Chief Complaint: Abd Prob Clinical Impression: Acute appendicitis Primary Care Provider: Viktor Alvarez ED Provider: Dileep Lyn Home Meds and New Rx's Prescriptions: No Action cholecalciferol (vitamin D3) 1,000 unit capsule 2,000 unit PO DAILY acetaminophen [Tylenol Extra Strength] 500 mg tablet 500 mg PO Q4H PRN sertraline [Zoloft] 50 mg tablet 50 mg PO DAILY famotidine [Pepcid AC] 10 mg tablet 10 mg PO DAILY Label Comments: Twice daily (20mg daily) Medical Decision Making 32 female history of 2 prior sections, IUD, presents with lower abdominal discomfort right greater than left over the last day associate with nausea and vomiting, constipation yesterday however had a hard difficult bowel movement earlier today. Abdomen soft nontender nondistended with subjective discomfort in the right lower quadrant. Appears uncomfortable, nontoxic. Consider early appendicitis versus ovarian cyst versus UTI versus less likely versus kidney stone versus enterocolitis. Screening labs imaging fluids antiemetics analgesia close reassessment 17: Evidence of acute nonperforated appendicitis. Patient resting more comfortably after IV Tylenol. Repeat patient on Dr Moy Cooley of general surgery has been contacted and is planning to take patient to operating room within the next 2 hours. Requesting subcu heparin dosage. Patient has been n.p.o. since yesterday. Family and patient counseled. HPI General Date/Time Provider Initiated Documentation: 06/30/22 15:39 . HPI Narrative: 32-year-old female history of 2 prior sections, IUD, presents with lower abdominal pain right greater than left over the past day associate with nausea and vomiting, felt constipated yesterday had a hard bowel movement earlier today. Related Data Home Medications Medication Instructions Recorded Confirmed cholecalciferol (vitamin D3) 25 2,000 unit PO DAILY 11/17/18 06/30/22 mcg (1,000 unit) capsule famotidine 10 mg tablet (Pepcid AC) 10 mg PO DAILY 02/18/19 06/30/22 acetaminophen 500 mg tablet 500 mg PO Q4H PRN 03/25/19 06/30/22 (Tylenol Extra Strength) sertraline 50 mg tablet (Zoloft) 50 mg PO DAILY 11/18/21 06/30/22 Allergies Allergy/AdvReac Type Severity Reaction Status Date / Time lactose AdvReac Severe Diarrhea Verified 06/30/22 15:33 latex AdvReac Intermediate irritation Verified 06/30/22 15:33 NARCOTIC AdvReac Intermediate MAKES PT Uncoded 06/30/22 15:33 FEEL STRANGE General Stated Complaint: Abd Prob BUSHRA: 3 Review of Systems Narrative: Review of Systems Constitutional: negative Eyes: negative ENT: negative Cardiovascular: negative Respiratory: negative Gastrointestinal: Abdominal pain nausea vomiting : negative Musculoskeletal: negative Skin: negative Neurologic: negative Psych: negative PFSH All Active Problems (Updated 06/30/22 @ 17:43 by Dileep Lyn MD) Acute appendicitis (Acute) Encounter for insertion of mirena IUD (Acute) TMJ dysfunction (Acute) Encounter for visit (Acute) Jaw pain (Acute) Encounter for supervision of normal first in first trimester (Acute 10/16/15) Positive urine test (Acute 10/03/15) Supervision of normal first in third trimester (Acute 04/24/16) (Acute) Status post emergency section (Acute) Failed trial labor (Acute) Non-reassuring heart tones complicating , antepartum (Acute) Gestational diabetes (Acute) Migraine (Acute 01/18/14) worse with sleep deprivation. no aura. OK'd for OCPs by [facility] neurologist Gastroesophageal reflux disease without esophagitis (Acute 10/24/15) Contraceptive management (Acute 01/18/14) Mirena IUD out 02/2014 secondary to dyspareunia Nexplanon out 05/2014 secondary to BTB 06/21/14 OCPs Functional constipation (Acute 01/24/14) during menses. resolves after completion of cycle. Medical History (Updated 06/30/22 @ 17:43 by Dileep Lyn MD) Contraceptive management 02/2010 Mirena IUD. 01/18/14 IUD out. 05/2014 Nexplanon -BTB 06/21/14 OCPs but stopped secondary to H/A. Dyspareunia Migraine in college. LOC - w/u by neuro felt that it was migraine. No aura. OK'd for OCPs by [facility] neurology 06/2014. Surgical History (Updated 04/15/19 @ 08:01 by Rolando Lyn MD) section (06/08/17) LTCS. Arrest of descent after 6hrs pushing. F. 9lbs. KK H/O dilation and curettage thumb surgery Tonsillectomy Family History Grandmother Myocardial infarction Mother Breast cancer Neg BRCA testing Father Thyroid cancer Grandfather Diabetes Maternal Uncle Crohns disease Social History (System 01/21/19 @ 10:56 by Jana Brown) Smoking/Tobacco Use Status: Never Smoking risk assessment performed?: Yes Alcohol Intake: current Alcohol Intake frequency: a few times a month Drug use: Occasionally Substance use type: marijuana Do you feel safe at home: Yes Do you feel safe in your relationship?: Yes History History 2 Para 2 Hx # Term Pregnancies 2 Multiple births Hx # Pregnancies Ectopic pregnancies AB induced Hx Number of Living Children 1 AB spontaneous Past Pregnancies Del. Date GA/Weeks # Preg Succ Route Wgt Sex Labor Lgth Anesth esia Location Prov Complic 06/08/16 40 No 4167.38 g Female 24 An ea/Rashad 04/14/19 39 No vaginal 3203.496 g Male [place] Delivery Date: 06/08/16 Last Updated by: Jana Ward CNM Long labor and C/S for FTP, fully dilated. Delivery Date: 04/14/19 Last Updated by: Radha Mckeon LPN Failed Trial of labor. Emergent . Exam Narrative Exam Narrative: Physical Examination General: alert, awake, cooperative, appears uncomfortable HEENT: normocephalic, atraumatic; PERRL, EOM intact, conjunctiva normal; no nasal discharge; moist mucous membranes, oral and pharyngeal mucosa normal, tolerating secretions Neck: supple, trachea midline; full ROM Chest: normal to inspection Respiratory: normal respiratory effort, speaking in full sentences, clear to auscultation, no wheezing, rales or rhonchi Cardiac: regular rate, regular rhythm, S1S2 intact, no murmurs rubs or gallops GI: abdomen soft, non-tender, non-distended; no palpable mass or hepatosplenomegaly Skin: no lesions, rashes or trauma appreciated Neuro: AAOx3, normal speech, moving all extremities Psych: Tearful Course Vital Signs Vital signs: Vital Signs Temperature 37.0 C 06/30/22 15:26 Pulse 98 H 06/30/22 15:26 Respiratory Rate 16 06/30/22 15:26 Blood Pressure 137/107 H 06/30/22 15:26 Pulse Oximetry 98 06/30/22 15:26 Temperature 37.0 C 06/30/22 15:26 Temperature Source Temporal Artery Scan 06/30/22 15:26 Pulse 98 H 06/30/22 15:26 Respiratory Rate 16 06/30/22 15:26 Respiratory Effort Non-Labored 06/30/22 15:29 Blood Pressure 137/107 H 06/30/22 15:26 Blood Pressure Position Sitting 06/30/22 15:26 Pulse Oximetry 98 06/30/22 15:26 Oxygen Delivery Method Room Air 06/30/22 15:26 Oxygen Flow Rate 0 06/30/22 15:26 Pain Level 6 06/30/22 15:26 PAWSS Have you Been Recently Intoxicated or Drunk Within the Last 30 days?: No Have you Ever Experienced Previous Episodes of Alcohol Withdrawal?: No Have you ever Experienced Withdrawal Seizures?: No Have you ever Experienced Delirium Tremens(DT)s?: No Have you ever undergone Alcohol Rehabilitation Treatment (i.e, inpt ot outpatient treatment programs)?: No Have you ever Experienced Blackouts?: No Have you ever Combined Alcohol with other Downers within the last 90 days?: No Have you ever Combined Alcohol with any other Substance of Abuse during the last 90 days?: No Result: 0
[2022-06-30] MEDS: Ondansetron 4 MG/2 ML VIAL IVP (15:55)
[2022-06-30 16:01] LABS: Abs Immature Grans 0.06 10^3/uL (0.0-0.06); Absolute Basophil Count 0.05 10^3/uL (0.0-0.2); Absolute Eosinophil Count 0.02 10^3/uL (0.0-0.7); Absolute Neutrophil Count 13.25 10^3/uL (1.2-6.7); Basophils % 0.3; Eosinophils % 0.1; HCT 44.8 % (36.0-46.0); HGB 15.9 g/dL (11.2-15.7); Immature Grans % 0.4; Lymphocytes % 7.8; MCH 30.4 pg (27.0-33.0); MCHC 35.5 % (32.0-36.0); MCV 86 fL (80-95); Monocytes % 5.8; Neutrophils % 85.6; Platelet Count 241 10^3/uL (130-400); RBC 5.23 10^6/uL (3.93-5.22); RDW 11.9 % (11.7-14.6); WBC 15.48 10^3/uL (4.4-10.8)
[2022-06-30 16:02] LABS: Absolute Lymphocyte Count 1.21 10^3/uL (1.2-3.4)
[2022-06-30] MEDS: ACETAMINOPHEN 1,000 MG/100 ML BTL 400 MG IVPB (16:04)
[2022-06-30 16:14] LABS: Bilirubin Small (Negative); Blood Trace-intact (Negative); Clarity Sl Cloudy (Clear); Glucose Negative (Negative); Ketones 80 mg/dL (Negative); Leukocyte Esterase Negative (Negative); Nitrite Negative (Negative); Specific Gravity >= 1.030 (1.005-1.025); Urobilinogen 0.2 EU/dL (Up TO 0.2)
[2022-06-30 16:14] LABS: ALT 33 U/L (14-59); AST 19 U/L (15-37); Albumin 4.8 g/dL (3.4-5.0); Alkaline Phosphatase 96 U/L (46-116); Anion Gap 13.3 mmol/L (3-11); BUN 13 mg/dL (7-18); Bilirubin, Total 1.8 mg/dL (0.2-1.0); CO2 26.7 mmol/L (21.0-32.0); CREATININE 0.8 mg/dL (0.55-1.02); Calcium 9.5 mg/dL (8.5-10.1); Chloride 99 mmol/L (98-107); Estimated GFR 99.71 (mL/min/1.73m2); Glucose 103 mg/dL (74-106); Potassium 3.5 mmol/L (3.5-5.1); Sodium 139 mmol/L (136-145); Total Protein 8.4 g/dL (6.4-8.2)
[2022-06-30 16:22] LABS: Bacteria Few HPF (Negative); C & S Indicated? No/Sq. Contamination; Casts Negative LPF (Negative); Crystals Negative HPF (Negative); Epithelial Cells Many HPF (Negative); Mucus Trace (Negative)
[2022-06-30] MEDS: Omnipaque 350 MG/ML 100 ML BTL IJ (16:29)
[2022-06-30] MEDS: Normal Saline Flush 10 ML SYR IVP (16:30)
[2022-06-30] MEDS: Normal Saline - Diluent 50 ML VIAL IJ (16:30)
[2022-06-30] MEDS: Normal Saline 1,000 ML 1000 ML IV (16:34)
--- NOTE | 2022-06-30 17:32 | DI.VRAD_ITS ---
Addendum created by Cristel Feliciano DO on 06/30/2022 7:31:02 PM EST: THIS REPORT CONTAINS FINDINGS THAT MAY BE CRITICAL TO PATIENT CARE. The findings were acknowledged to be understood at 7:30 PM EST on 06/30/2022, via the OPS team, by Dileep Lyn. patient has been taken to the OR Initial report created on 06/30/2022 5:32:09 PM EST: PROCEDURE INFORMATION: Exam: CT Abdomen And Pelvis With Contrast Exam date and time: 06/30/2022 4:16 PM Age: 32 years old Clinical indication: Other: Lower abdominal pain, rlq nausea, vomiting TECHNIQUE: Imaging protocol: Computed tomography of the abdomen and pelvis with contrast. Radiation optimization: All CT scans at this facility use at least one of these dose optimization techniques: automated exposure control; mA and/or kV adjustment per patient size (includes targeted exams where dose is matched to clinical indication); or iterative reconstruction. Contrast material: OMNIPAQUE 350; Contrast volume: 100 ml; Contrast route: INTRAVENOUS (IV); COMPARISON: US PELVIS TRANSVAGINAL 06/17/2018 3:50 PM FINDINGS: Lungs: No concerning finding. Liver: The liver is unremarkable. Gallbladder and bile ducts: The gallbladder is unremarkable. No biliary ductal dilatation. Pancreas: The pancreas is unremarkable. Spleen: Mildly enlarged spleen, measuring 14.5 cm AP Adrenal glands: The adrenal glands are unremarkable. Kidneys and ureters: No hydronephrosis or nephrolithiasis. Stomach and bowel: Mild distal ileal wall thickening, likely reactive change. Mild rectal wall thickening without perirectal stranding, may represent under distention. No bowel obstruction. No other abnormal bowel wall thickening or inflammatory change. Appendix: The appendix is distended with periappendiceal inflammatory changes and possible distal appendicolith, consistent with acute appendicitis. Intraperitoneal space: Unremarkable. No free air. No significant fluid collection. Vasculature: The aorta is unremarkable. Mildly prominent bilateral parametrial vessels, nonspecific; in the appropriate setting, consider pelvic congestion. Lymph nodes: Few prominent right lower quadrant nodes, likely reactive. No enlarged lymph nodes. Urinary bladder: The bladder may be thick-walled relative to degree of distention, without perivesical inflammatory changes; this may represent incomplete distension, or cystitis. Reproductive: IUD in satisfactory position. Unremarkable adnexa. Bones/joints: Unremarkable. No acute fracture. Soft tissues: Rectus diastasis. IMPRESSION: 1. Acute appendicitis with moderate periappendiceal inflammatory change. No perforation, abscess or obstruction. 2. Mild distal ileal wall thickening, likely reactive. 3. Possible urinary bladder wall-thickening, may represent incomplete distention versus cystitis. If warranted, correlate with urinalysis. 4. Incidental, mildly prominent bilateral parametrial vessels, can be seen in pelvic congestion syndrome. Dictated and Authenticated by: Cristel Feliciano MD. Ordering:REYMUNDO Falk MD
[2022-06-30] MEDS: PIPERACILLIN/TAZO 3.375 GM in Normal Saline 50 ML IVPB (17:51)
[2022-06-30] MEDS: Heparin 5,000 UNITS/ML VIAL 5000 UNITS SC (17:52)
--- NOTE | 2022-06-30 18:09 | SCONE_ITS ---
Date of service: 06/30/22 Time of Service: 18:18 Assessment and Plan Assessment and plan (1) Acute appendicitis: Status: Acute Assessment and plan: 32-year-old woman with acute appendicitis both clinically and radiographically. Hemodynamically stable. No widespread peritonitis and no evidence on CT of perforation. The differential diagnosis does include Crohn's disease. Overall plan: Antibiotics Subcutaneous heparin Laparoscopic appendectomy History of Present Illness Narrative: The patient is a 32-year-old woman who was in her usual state of health until yesterday when she developed mid abdominal pain suddenly and unexpectedly. She has never had pain like that before. She figured she was just constipated and tried to go to the bathroom but that did not help. The pain then slowly migrated as well as worsened and drifted to the right lower quadrant of her abdomen and stayed present in that location only. All night long it did not get any better as well as earlier today and she finally decided to present to the emergency department for evaluation. She denies any nausea or vomiting. She did not eat anything unusual or out of the ordinary. No fevers or chills. Only pain. History: GERD, migraines Surgical history: x2 Latex/lactose allergies Remote family history of Crohn disease PFSH All Active Problems (Updated 06/30/22 @ 17:43 by Dileep Lyn MD) Acute appendicitis (Acute) Encounter for insertion of mirena IUD (Acute) TMJ dysfunction (Acute) Encounter for visit (Acute) Jaw pain (Acute) Encounter for supervision of normal first in first trimester (Acute 10/16/15) Positive urine test (Acute 10/03/15) Supervision of normal first in third trimester (Acute 04/24/16) (Acute) Status post emergency section (Acute) Failed trial labor (Acute) Non-reassuring heart tones complicating , antepartum (Acute) Gestational diabetes (Acute) Migraine (Acute 01/18/14) worse with sleep deprivation. no aura. OK'd for OCPs by [facility] neurologist Gastroesophageal reflux disease without esophagitis (Acute 10/24/15) Contraceptive management (Acute 01/18/14) Mirena IUD out 02/2014 secondary to dyspareunia Nexplanon out 05/2014 secondary to BTB 06/21/14 OCPs Functional constipation (Acute 01/24/14) during menses. resolves after completion of cycle. Medical History (Updated 06/30/22 @ 17:43 by Dileep Lyn MD) Contraceptive management 02/2010 Mirena IUD. 01/18/14 IUD out. 05/2014 Nexplanon -BTB 06/21/14 OCPs but stopped secondary to H/A. Dyspareunia Migraine in college. LOC - w/u by neuro felt that it was migraine. No aura. OK'd for OCPs by [facility] neurology 06/2014. Surgical History (Updated 04/15/19 @ 08:01 by Rolando Lyn MD) section (06/08/17) LTCS. Arrest of descent after 6hrs pushing. F. 9lbs. KK H/O dilation and curettage thumb surgery Tonsillectomy Family History Grandmother Myocardial infarction Mother Breast cancer Neg BRCA testing Father Thyroid cancer Grandfather Diabetes Maternal Uncle Crohns disease Social History (System 01/21/19 @ 10:56 by Jana Borwn) Smoking/Tobacco Use Status: Never Smoking risk assessment performed?: Yes Alcohol Intake: current Alcohol Intake frequency: a few times a month Drug use: Occasionally Substance use type: marijuana Do you feel safe at home: Yes Do you feel safe in your relationship?: Yes History History 2 Para 2 Hx # Term Pregnancies 2 Multiple births Hx # Pregnancies Ectopic pregnancies AB induced Hx Number of Living Children 1 AB spontaneous Past Pregnancies Del. Date GA/Weeks # Preg Succ Route Wgt Sex Labor Lgth Anesth esia Location Prov Complic 06/08/16 40 No 9 lb 3 oz Female 25 An ea/Rashad 04/14/19 39 No vaginal 7 lb 1 oz Male [place] Delivery Date: 06/08/16 Last Updated by: Jana Ward CNM Long labor and C/S for FTP, fully dilated. Delivery Date: 04/14/19 Last Updated by: Radha Mckeon LPN Failed Trial of labor. Emergent . Exam Narrative Exam Narrative: General: Nontoxic but clearly uncomfortable. She is interactive and cooperative and with nonlabored breathing. Neuro: Alert and oriented x3 Psych: Appropriate mood and affect, good insight and understanding into her condition Abdomen: Soft, no distention, peritoneal signs in the right hemiabdomen. The right upper quadrant as well as the left hemiabdomen are nontender. Rovsing sign is present however. Results Last Vital Signs Temp 98.6 F 06/30/22 15:26 Pulse 98 H 06/30/22 15:26 Resp 16 06/30/22 15:26 BP 137/107 H 06/30/22 15:26 Pulse Ox 98 06/30/22 15:26 Labs Result diagrams: 06/30/22 15:53 06/30/22 15:53 Labs: Laboratory Results - last 24 hr 06/30/22 06/30/22 06/30/22 15:53 15:53 15:54 WBC 15.48 H RBC 5.23 H Hgb 15.9 H Hct 44.8 MCV 86 MCH 30.4 MCHC 35.5 RDW 11.9 Plt Count 241 MPV 10.0 Immature Gran % 0.4 Neutrophils % 85.6 Lymphocytes % 7.8 Monocytes % 5.8 Eosinophils % 0.1 Basophils % 0.3 Nucleated RBC % 0.0 Absolute Neutrophils 13.25 H Absolute Lymphocytes 1.21 Absolute Monocytes 0.90 H Absolute Eosinophils 0.02 Absolute Basophils 0.05 Sodium 139 Potassium 3.5 Chloride 99 Carbon Dioxide 26.7 Anion Gap 13.3 H BUN 13 Creatinine 0.8 Est GFR (CKD-EPI 2020) 99.71 Glucose 103 Calcium 9.5 Total Bilirubin 1.8 H AST 19 ALT 33 Alkaline Phosphatase 96 Total Protein 8.4 H Albumin 4.8 Urine Color Yellow Urine Clarity Sl Cloudy Urine pH 6.0 Ur Specific [place] >= 1.030 H Urine Protein 30 H Urine Ketones 80 H Urine Blood Trace-intact H Urine Nitrite Negative Urine Bilirubin Small H Urine Urobilinogen 0.2 Ur Leukocyte Esterase Negative Urine RBC 3-5 H Urine WBC 3-5 Ur Epithelial Cells Many Urine Crystals Negative Urine Bacteria Few Urine Casts Negative Urine Mucus Trace Ur Culture Indicated? No/Sq. Contamination Urine Glucose Negative
--- NOTE | 2022-06-30 18:20 | ANES.PREOP_ITS ---
General Info Date of Service Date Performed: 06/30/22 Height: 5 ft 3 in Weight: 72.575 kg Body Mass Index (BMI): 28.3 Surgical Procedure: Operation Date: 06/30/22 18:15 Proposed Procedure Side Surgeon p Appendectomy Laparoscopic Ozzy Winter MD Meds Allergies and Home Medications Allergies Allergy/AdvReac Type Severity Reaction Status Date / Time lactose AdvReac Severe Diarrhea Verified 06/30/22 15:33 latex AdvReac Intermediate irritation Verified 06/30/22 15:33 NARCOTIC AdvReac Intermediate MAKES PT Uncoded 06/30/22 15:33 FEEL STRANGE Home Medication Medication Instructions Recorded cholecalciferol (vitamin D3) 25 2,000 unit PO DAILY 11/17/18 mcg (1,000 unit) capsule famotidine 10 mg tablet (Pepcid AC) 10 mg PO DAILY 02/18/19 acetaminophen 500 mg tablet 500 mg PO Q4H PRN 03/25/19 (Tylenol Extra Strength) sertraline 50 mg tablet (Zoloft) 50 mg PO DAILY 11/18/21 Current Visit Medications: Current Medications Generic Name Dose Route Start Last Admin Trade Name Freq PRN Reason Stop Dose Admin Iohexol 100 ml 06/30/22 16:30 06/30/22 16:29 Omnipaque 350 Mg/Ml 100 Ml Btl IJ 07/30/22 23:59 100 ml DIRECTED GEENA Administration Sodium Chloride 50 ml 06/30/22 16:30 06/30/22 16:30 Normal Saline - Diluent 50 Ml Vial IJ 50 ml .FOR DI USE GEENA Administration Sodium Chloride 0 ml 06/30/22 16:30 06/30/22 16:30 Normal Saline Flush 10 Ml Syr IVP 10 ml PRN PRN Administration PFSH Active Problems Active Problems: Problem Status Onset Code Acute appendicitis K35.80 Encounter for insertion of mirena IUD Z30.430 TMJ dysfunction M26.609 Encounter for visit Z39.2 Jaw pain R68.84 Encounter for supervision of normal first in first trimester 10/16/15 Z34.01 Positive urine test 10/03/15 Z32.01 Supervision of normal first in third trimester 04/24/16 Z34.03 Z34.90 Status post emergency section Z98.891 Failed trial labor O66.40 Non-reassuring heart tones complicating , antepartum O36.8390 Gestational diabetes O24.419 Migraine 01/18/14 G43.909 IUD surveillance 10/22/17 Z30.431 Gastroesophageal reflux disease without esophagitis 10/24/15 K21.9 Contraceptive management 01/18/14 Z30.9 Functional constipation 01/24/14 K59.04 Medical History Medical History (Updated 06/30/22 @ 17:43 by Dileep Lyn MD) Contraceptive management 02/2010 Mirena IUD. 01/18/14 IUD out. 05/2014 Nexplanon -BTB 06/21/14 OCPs but stopped secondary to H/A. Dyspareunia Migraine in college. LOC - w/u by neuro felt that it was migraine. No aura. OK'd for OCPs by [facility] neurology 06/2014. Surgical History Surgical History (Updated 04/15/19 @ 08:01 by Rolando Lyn MD) section (06/08/17) LTCS. Arrest of descent after 6hrs pushing. F. 9lbs. KK H/O dilation and curettage thumb surgery Tonsillectomy Tobacco Smoking/Tobacco Use Status: Never Alcohol Alcohol Intake: current Alcohol intake frequency: a few times a month Substance Use Substance use: Occasionally Substance use type: marijuana Prental History History 2 Para 2 Hx # Term Pregnancies 2 Multiple births Hx # Pregnancies Ectopic pregnancies AB induced Hx Number of Living Children 1 AB spontaneous Past Pregnancies Del. Date GA/Weeks # Preg Succ Route Wgt Sex Labor Lgth Anesth esia Location [facility] 06/08/16 40 No 4167.38 g Female 25 An ea/Rashad 04/14/19 39 No vaginal 3203.496 g Male [place] Delivery Date: 06/08/16 Last Updated by: Jana Ward CNM Long labor and C/S for FTP, fully dilated. Delivery Date: 04/14/19 Last Updated by: Radha Mckeon LPN Failed Trial of labor. Emergent . Vital Signs and Lab Results Vital Signs Most Recent Vital Signs in EMR: Most Recent Vital Signs Temp Pulse Resp BP Pulse Ox 37.0 C 98 H 16 137/107 H 98 06/30/22 15:26 06/30/22 15:26 06/30/22 15:26 06/30/22 15:26 06/30/22 15:26 Point of Care Results Point of Care Results: POC- Test(urine) Negative 06/30/22 16:03 Lab Results Result Diagrams: 06/30/22 15:53 06/30/22 15:53 Blood Type / Crossmatch: No Data to Display Complete Blood Count: White Blood Count 15.48 10^3/uL (4.4-10.8) H 06/30/22 15:53 Red Blood Count 5.23 10^6/uL (3.93-5.22) H 06/30/22 15:53 Hemoglobin 15.9 g/dL (11.2-15.7) H 06/30/22 15:53 Hematocrit 44.8 % (36.0-46.0) 06/30/22 15:53 Platelet Count 241 10^3/uL (130-400) 06/30/22 15:53 Complete Metabolic Panel: Sodium 139 mmol/L (136-145) 06/30/22 15:53 Potassium 3.5 mmol/L (3.5-5.1) 06/30/22 15:53 Chloride 99 mmol/L (98-107) 06/30/22 15:53 Carbon Dioxide 26.7 mmol/L (21.0-32.0) 06/30/22 15:53 BUN 13 mg/dL (7-18) 06/30/22 15:53 Creatinine 0.8 mg/dL (0.55-1.02) 06/30/22 15:53 Est GFR (CKD-EPI 2020) 99.71 (mL/min/1.73m2) 06/30/22 15:53 Calcium 9.5 mg/dL (8.5-10.1) 06/30/22 15:53 Albumin 4.8 g/dL (3.4-5.0) 06/30/22 15:53 Glucose 103 mg/dL (74-106) 06/30/22 15:53 Liver Function Panel: Alanine Aminotransferase (ALT/SGPT) 33 U/L (14-59) 06/30/22 15: 53 Aspartate Amino Transf (AST/SGOT) 19 U/L (15-37) 06/30/22 15:53 Coagulation Panel: No Data to Display Cardiac Panel: No Data to Display Arterial Blood Gas: No Data to Display Venous Blood Gas: No Data to Display Pancreas Panel: 2 No Data to Display Thyroid Panel: No Data to Display Infectious Disease: Coronavirus (COVID-19)(PCR) Negative (Negative) 06/30/22 18:50 Coronavirus 2019 Source Nasal/Nares 06/30/22 18:50 Blood Cultures: No Data to Display Toxicology Panel: No Data to Display Panel: No Data to Display Anesthesia Assessment and Plan Anesthesia History Personal History: No History of Anesthesia Complications Family History: No Family History of Anesthesia Complications Exercise Tolerance Exercise Tolerance: Metabolic Equivalents>4 Pertinent Negatives Pertinent Negatives: No Symptoms of GERD, No Major Cardiovascular Symptoms or Complaints, No Major Pulmonary Symptoms or Complaints and No History of CVA/TIA Cardiac & Pulmonary Exam Cardiac Exam: Normal S1/S2 Heart Sounds Pulmonary Exam: Clear Bilateral Breath Sounds Implantable Cardiac Device Does patient have a Pacemaker or an ICD?: No Airway Exam Known Difficult Airway: No Mallampati Class: 2 Mouth Opening: Normal (> 3cm) Thyromental Distance: Greater than 3 cm Neck Range of Motion: Full ROM Neck Circumference: Normal Teeth Condition: Normal Dentition ASA Classification ASA Score: ASA 2 Emergency Case?: No NPO Status NPO Status: NPO Clears >2 hours, Solids >8 hours Status Status: Negative HCG Anesthesia Plan Resuscitation Status: Full Code Anesthesia Technique: General Anesthesia Airway Planned: Endotracheal Tube Monitors Used: Standard Monitors
[2022-06-30 18:54] LABS: Source Nasal/Nares
[2022-06-30] MEDS: Ketorolac 15 MG/ML VIAL IVP (19:07)
[2022-06-30] MEDS: Lactated Ringers 1,000 ML 30 ML IV (19:19)
[2022-06-30 19:29] LABS: COVID-19 PCR Negative (Negative)
[2022-06-30] MEDS: Bupivacaine 0.5% Pres-Free 30 ML VIAL (19:38)
[2022-06-30 19:42] VITALS: BMI 28.3
--- NOTE | 2022-06-30 20:20 | APP_PTH ---
PATIENT: Keysha Dhaliwal LOC: [facility] U#:[id number] AGE/SX: 32/F ROOM: RE06/30/[address]: Ozzy Winter : 1990 BED: DIS: 06/30/2022 SPEC #: [id number] RECD: 07/01/22 13:04 STATUS: LIZETTE REHusam #: [id number] PROSPER: 06/30/22 20:[address]: Ozzy Winter DEPT: Surgical Specimen RECD BY: Rosalina Demarco ENTERED: 07/01/22 13:04 SP TYPE: Appendix OTHR DR: Viktor Alvarez Tissues: 1 - APPENDIX NOT INCIDENTAL Procedures: GROSS AND MICRO LEVEL 3 Comments: [id number]
--- NOTE | 2022-06-30 20:40 | W.PM.OP ---
Date of service: 06/30/22 Time of Service: 20:40 Operative Note Operative Note Refer to Anesthesia Record Procedure Description: Procedures performed: 1. Laparoscopic appendectomy ?Preoperative diagnosis: Acute appendicitis ?Postop diagnosis: Acute non-perforated appendicitis ?Surgeon: Octavia Winter ?Anesthesia: General ?Anesthesia provider: Aamir ?Indication for procedure: 32 yo woman with acute onset RLQ pain and CT findings consistent with acute, non-perforated appendicitis. ?Findings:? An acutely inflamed but non-perforated appendix was found and removed in usual fashion.? ?Estimated blood loss: Scant/Minimal ?Complications: No complications ?Drains: None ?Procedure details: The patient gave written consent.? She was in agreement with the risks, indications and benefits of the procedure.? She was taken to the operating room and laid supine with arms outstretched.? Anesthesia was administered which she tolerated very well.? Antibiotics have been given.? She had received DVT prophylaxis.? We performed a timeout and when we were all in agreement I began the case. We prepped and draped the abdomen in sterile fashion.? I injected local at the umbilicus. I used a Veress needle at the umbilicus and insufflated without any difficulty.? A 5 mm port was placed thru the umbilicus without any difficulty. I had adequate exposure and visualization of the RLQ where an acutely inflamed but non-perforated appendix was easily found.? I placed a 5mm trocar under direct visualization using her prior scar and then upsized the umbilical port to a 12mm. I inspected the RLQ. There was no evidence of perforation although a scant amount of reactive fluid was seen around the base of the cecum and appendix. Using the Ligasure I divided the mesoappendix.? Next I divided the appendix base with the stapler ensure a healthy cuff of cecum was also taken as part of the staple line.? I removed the appendix from the abdominal cavity and passed the specimen off the back table.? I rechecked for hemostasis at the staple line and RLQ and it was excellent.? The 12 mm port site was closed through the fascia with 0-Vicryl.? The remaining port was removed.? Skin was closed with absorbable sutures and dressings were placed. The patient tolerated the procedure well.? She was extubated and taken to the PACU in HD stable condition.?
[2022-06-30 20:42] VITALS: BP 128/82; PULSE 93; RESP 25; TEMP 36.6; O2SAT 95
[2022-06-30 20:47] VITALS: BP 115/86; PULSE 89; RESP 22; TEMP 36.6; O2SAT 96
[2022-06-30 20:52] VITALS: BP 130/74; PULSE 89; RESP 23; TEMP 36.6; O2SAT 96
--- NOTE | 2022-06-30 20:52 | W.ANESPOSTOP ---
Postoperative Evaluation Date, Time and Location Date Performed: 06/30/22 Time Performed: 20:53 Patient Location: PACU Vital Signs Most Recent Imported Vital Signs: Most Recent Vital Signs Temp Pulse Resp BP Pulse Ox 36.6 C 89 22 115/86 96 06/30/22 20:47 06/30/22 20:47 06/30/22 20:47 06/30/22 20:47 06/30/22 20:47 Pain Score Most Recent Pain Score: Most Recent Pain Score Pain Level 6 06/30/22 15:26 Assessment Mental Status: Awake (Alert & Oriented to Patient Baseline) Airway and Respiratory Function: Patent airway with normal (patient baseline) respiratory exam Cardiovascular Function: Hemodynamically Stable Hydration Status: Adequately Hydrated Nausea & Vomiting: No Nausea or Vomiting Pain: Pain is tolerable per patient (Reports pain 4/10. Denying medication at this time.) Peripheral Nerve Block: Patient did not receive a nerve block
[2022-06-30 20:57] VITALS: BP 120/84; PULSE 88; RESP 19; TEMP 36.6; O2SAT 95
[2022-06-30] MEDS: Acetaminophen 325 MG TAB 1000 MG PO (22:00)
--- NOTE | 2022-06-30 22:21 | NUR.NOTE ---
Nursing Note: Pain med given as ordered for pain of 10/13, pt currently in 230 Med sug unit. Recovering post op for appendectomy out-patient surgery. dsg remain clean dry and intact to two sites (belly button and lower abd.) Right AC 18gIv ml d/c'ed cather intact. apply pressure to site 3 min no bleeding applied gauze and tape. pt got dressed with assistance from . pt signed d/c papers read to her by bow maker . RN CALL CENTER escorted pt via w/c to [employer] to meet for [employer] car pulled up. ----Maribeth Robbins RN
--- NOTE | 2022-07-02 10:27 | W.PM.DSUDISC ---
Date of service: 06/30/22 Time of Service: 21:00 Discharge Plan Disposition Patient Disposition: Home Condition: Good Discharge Details Attending Provider: Ozzy Winter Primary Care Provider: Viktor Alvarez Home Meds and New Rx's Prescriptions: No Action cholecalciferol (vitamin D3) 1,000 unit capsule 2,000 unit PO DAILY acetaminophen [Tylenol Extra Strength] 500 mg tablet 500 mg PO Q4H PRN sertraline [Zoloft] 50 mg tablet 50 mg PO DAILY famotidine [Pepcid AC] 10 mg tablet 10 mg PO DAILY Label Comments: Twice daily (20mg daily) Discharge Instructions Additional Instructions: FINDINGS: Your appendix was inflamed, infected and removed from your body. Incisions:? Remove dressings in 2 days. Keep clean.? It is okay to shower over the dressings since they are waterproof. Diet:? Regular Pain:? Tylenol and Ibuprofen are typically all that is needed.? Call MD if anything is getting worse or for pain not controlled with Tylenol.? Activity:? Light-duty as tolerated for next week. Return to work as tolerated after that without restrictions. Other instructions:? Call the surgical office [phone] on Thursday to schedule a followup visit with the surgeon, to be seen sometime the following week. For FEVER, shortness of breath, chest pain, worsening symptoms or return of symptoms that brought you to the hospital, call [phone], the hospital([phone]) or go the Emergency department Stand Alone Forms: Jerri.Sugammadex Interaction Activity:: Activity as Tolerated Remove Dressings/Wound Care:: 48 hours Diet:: Normal Diet Discharge Orders Discharge Orders: Discharge Order (Routine); Ordered 06/30/22 Ordered By: Ozzy Winter Discharge Data Discharge Date/Time-TO BE ENTERED AT DEPARTURE: 06/30/22 22:20 DS: Diagnosis Discharge Diagnosis (1) Acute appendicitis: Status: Acute Asessment and Plan: 32 yo woman presented with acute, nonperforated appendicitis. She had a laparoscopic appendectomy. She was discharged home from the PACU. Followup in 2-3 weeks.
== END 2022-06-30 22:20 | disposition home or self-care (01) ==
LOC: ER 17:43 → DSU 19:18 → MS 21:28
PROVIDERS: Emergency Provider Emergency Medicine; PCP Family Medicine; Visit Provider Student in an Organized Health Care Education/Training Program
PROC: 0DTJ4ZZ Resection of Appendix, Percutaneous Endoscopic Approach (ICD-10-PCS; CPT 44970; principal; 2022-06-30 18:15)
DX: K35.80 Unspecified acute appendicitis (principal); K21.9 Gastro-esophageal reflux disease without esophagitis; G43.909 Migraine, unspecified, not intractable, without status migrainosus; M26.69 Other specified disorders of temporomandibular joint
CPT/HCPCS: 44970; 36415; 80053; 81025; 87635; 96361; 96365; 96375; 99285; 74177; 81003; 81015; 85025; 88304; J0131; J1100; J1644; J1885; J2250; J2405; J2543; J2704; J3490

== ENCOUNTER 2022-07-10 01:21 | Outpatient (CLI) | payer BC, SELFPAY ==
--- NOTE | 2022-07-10 06:30 | DI.CT_ITS ---
Exam(s) CT ABDOMEN PELVIS W EXAM: CT ABDOMEN PELVIS W CLINICAL HISTORY: ? post-op umbilical fluid collection,H/O ACUTEAPPENDICITS, ABSCESS. TECHNIQUE: Imaging Protocol: Axial computed tomography images with coronal and sagittal reformatted images were created and reviewed CONTRAST MATERIAL: Intravenous: Omnipaque-350 100cc Oral: Yes. Oral contrast was administered for bowel opacification. COMPARISON: CT CT ABDOMEN PELVIS W from 06/30/2022 FINDINGS: VISUALIZED LUNG BASES: No nodules nor pleural effusions evident. ABDOMEN: There is no ascites. LIVER: There are no focal hepatic lesions evident. No evidence of a P[place]ock abscess. No air-gas wit hin the portal venous system. GALLBLADDER/BILIARY: No obvious gallbladder pathology. CBD is not dilated. PANCREAS: No evidence of pancreatic mass nor dilatation of the pancreatic duct. SPLEEN: Spleen size upper normal. No splenic lesions nor perisplenic fluid. Splenic and portal vein s are patent. ADRENALS: There are no significant adrenal masses. KIDNEYS:No cysts evident. No solid renal masses. No calculi nor hydronephrosis.. ABDOMINAL AORTA: Abdominal aorta is not enlarged. LYMPH NODES:There is no retroperitoneal nor paraaortic adenopathy. ABDOMINAL WALL: There is now new symmetrical streaking and single gas bubble at the level of the umbi licus which is probably port site from recent appendectomy. No other abnormal subcutaneous findings. GI: There is no evidence of bowel obstruction, free air, nor abscess. No evidence of abscess at the recent appendectomy site. No free fluid in the pelvis. PELVIS: GI: No evidence of sigmoid diverticular disease. LYMPH NODES: There is no intrapelvic nor inguinal adenopathy. REPRODUCTIVE: IUD again noted in satisfactory position in the endometrial canal. Uterus size normal. Both ovaries upper normal size for this age group URINARY BLADDER: No calculi nor obvious masses evident OSSEOUS: No significant osseous lesions. IMPRESSION: 1. No evidence of intra abdominal abscess at the recent appendectomy sys surgical site. Also no free fluid in the abdomen and pelvis. 2. However, there is abnormal density consistent with probable developing abscess at the umbilical le vibha which is probably port site from recent appendectomy. 3. No bowel obstruction. No free intraperitoneal air. 4. RADIATION DOSE DELIVERED: 950.93mGy.cm Total DLP DATA REPOSITORY: All CT scans at this facility are submitted to the National Radiology Data Registry (NRDR) Dose Index Registry (DIR) with the [employer] (ACR). RADIATION OPTIMIZATION: All CT scans at this facility use at least one of these dose optimization te chniques: automated exposure control; mA and/or kV adjustment per patient size (includes targeted exa ms where dose is matched to clinical indication); or iterative reconstruction.
[2022-07-10] MEDS: Gastrografin 120 ML BTL 25 ML PO (08:08)
[2022-07-10] MEDS: Breeza Beverage 473 ML BTL 900 ML PO (08:09)
[2022-07-10] MEDS: Normal Saline - Diluent 50 ML VIAL IJ (10:21)
[2022-07-10] MEDS: Omnipaque 350 MG/ML 500 ML BTL-Imaging package IJ (10:22)
--- NOTE | 2022-07-11 18:21 | PGE_ITS ---
Date of Service Date of service: 07/11/22 Time of Service: 18:21 Assessment and Plan Assessment and plan (1) Acute appendicitis: Status: Acute Assessment and plan: 32 yo woman s/p appendectomy. Umbilical wound infection is drastically improved but not perfect. I wonder about possibly having a co-infection with MRSA or something that doesn't respond to Augmentin. I opened it up at the bedside a second time and some purulent fluid expressed. I cultured this. 2x2 corner gauze gently packed into opening. I'll follow up with her over the weekend. She has 3 more days of Abx left. Subjective Subjective Interval history since last seen: still having some discharge from belly button wound. roping machine tender. No fevers. Exam Narrative Exam Narrative: Nontoxic and comfortable. Abd: Soft and nondistended. Mild erythema remains around umbilical incision. Drastically improved compared to last time. No induration remains lateral like before. incision has closed over and has yellowish scab to it. Time Spent with Patient Time Spent with Patient: 25-34 minutes Time was spent: preparing to see the patient(eg.review tests), ordering medications,tests, procedures and counseling the patient
== END 2022-07-10 01:41 ==
LOC: DI 01:23
PROVIDERS: PCP Family Medicine; Visit Provider Physical Therapy Assistant
DX: K35.80 Unspecified acute appendicitis (principal); L02.216 Cutaneous abscess of umbilicus; Z90.49 Acquired absence of other specified parts of digestive tract
CPT/HCPCS: 74177; 87070

== ENCOUNTER → 2023-12-28 02:02 | Outpatient (CLI) | payer BC, SELFPAY ==
--- NOTE | 2023-12-28 06:15 | DI.MAMMO_ITS ---
Exam(s) MAMMO SCREENING EXAM: MAMMO SCREENING CLINICAL HISTORY: screening,z12.31 TECHNIQUE: Bilateral full field digital CC and MLO mammographic images were obtained with 3D tomosyn thesis and utilizing computer aided detection (CAD). COMPARISON: This is a baseline examination. FINDINGS: Masses/Architectural Distortion: No suspicious masses are seen. There are no areas of architectural distortion. There is a well-circumscribed nodule in the upper outer quadrant of the left breast with an eccentric notch consistent with a intraparenchymal lymph node. Microcalcifications: No suspicious pleomorphic-type are seen. Skin Thickening/Nipple Retraction: None. IMPRESSION: 1. No evidence for malignancy is seen at this time. 2. Unless there is more urgent need, screening mammography is recommended, as per [employer] guidelines. BI-RADS Category 1 - Negative Breast Density - Category C - Heterogeneously dense Breast density category C or D implies that the patient has dense breast tissue. Dense breast tissue is very common and is not abnormal but dense breast tissue can make it harder to find cancer on a ma mmogram. Also, dense breast tissue may increase their breast cancer risk. This information about the result of the mammogram report was provided to the patient to raise their awareness. Use this report when you speak with the patient about their risks for breast cancer, which includes their family hist ory. At that time, you may recommend for more screening tests (Ultrasound or MRI) as they might be us eful based on their risk. A negative radiographic report should not delay biopsy if a dominant or clinically suspicious mass is present. Up to ten percent of cancers are not identified on mammography. A negative report may reinforce clinical impression. Adenosis and dense breasts may obscure an underlying neoplasm. False positive reports average 6 to 10%. Patient will receive a letter notifying them of these results.
== END ==
PROVIDERS: PCP Physician Assistant; Visit Provider Obstetrics & Gynecology
DX: Z12.31 Encounter for screening mammogram for malignant neoplasm of breast (principal)
CPT/HCPCS: 77063; 77067

== ENCOUNTER 2024-02-12 12:35 | Outpatient (REF) | payer BC, SELFPAY ==
[2024-02-12 16:30] LABS: Anion Gap 7.5 mmol/L (3-11); BUN 11 mg/dL (7-18); CO2 29.5 mmol/L (21.0-32.0); CREATININE 0.9 mg/dL (0.55-1.02); Calcium 9.5 mg/dL (8.5-10.1); Chloride 102 mmol/L (98-107); Estimated GFR 86.03 (mL/min/1.73m2); Glucose 105 mg/dL (74-106); Potassium 3.9 mmol/L (3.5-5.1); Sodium 139 mmol/L (136-145)
== END 2024-02-12 12:36 | disposition home or self-care (01) ==
LOC: NCHCN 12:35
PROVIDERS: PCP Physician Assistant; Visit Provider Physician Assistant
DX: I10 Essential (primary) hypertension (principal)
CPT/HCPCS: 80048

== ENCOUNTER 2024-02-26 14:47 | Outpatient (REF) | payer BC, SELFPAY ==
--- OUTSIDE RECORDS SUMMARY | 2024-02-26 14:48 | XMS_ITS | Encounter Summary ---
Author Organization [facility] Address [address] [place] [address] Care Team Providers Care Client Retention Specialist Name Role Phone Robert Santana APRN Primary Care Provider [phone] Encounter Details Date Type Department Care Team (Latest Contact Info) Description 06/22/2018 12:17 EST - 06/22/2018 23:59 EST Hospital Encounter [address] [address] Unknown, Provider, Discharge Disposition: Home or Self Care Social History Tobacco Use Types Packs/Day Years Used Date Smoking Tobacco: Never Assessed Sex and Gender Information Value Date Recorded Sex Assigned at Not on file Gender Identity Not on file Sexual Orientation Not on file documented as of this encounter Discharge Disposition Disposition Code Departure Means Destination Home or Self Penitentiary documented in this encounter Plan of Treatment Not on file documented as of this encounter Visit Diagnoses Not on filedocumented in this encounter Care Teams Client Retention Specialist Relationship Specialty Start Date End Date Robert Santana APRN [address] [place] [phone] PCP - General 06/28/12 08/20/20 documented as of this encounter
--- OUTSIDE RECORDS SUMMARY | 2024-02-26 14:48 | XMS_ITS | Clinical Summary ---
Author Organization [facility] Address [address] [place] [address] Care Team Providers Care Salvage Clerk Name Role Phone Viktor Alvarez MD Primary Care Provider [phone] Social History Tobacco Use Types Packs/Day Years Used Date Smoking Tobacco: Never Assessed Interpersonal Safety Answer Date Record ed Physically Hurt Never 02/05/2020 Verbally Threaten Not on file 02/05/2020 Sex and Gender Information Value Date Recorded Sex Assigned at Not on file Gender Identity Not on file Sexual Orientation Not on file Plan of Treatment Health Maintenance Due Date Last Done Comments Hepatitis C Screen 1989 Social Determinants Of Health (SDOH) 1989 Depression Screening 2001 HIV Screening 2005 Advance Directive 2007 Preventive Care Visit 2007 Hepatitis B Vaccine (1 of 3 - 19+ 3-dose series) 2008 Pertussis (Adult) Immunization 2008 Tetanus (Adult) Immunization 2008 COVID-19 Vaccine ( season) 2023 Influenza Immunization (Adult) (#1) 2024 Pap Smear (Cervical Cancer Screening) 11/18/2024 11/18/2021, 10/22/2017, 10/16/2015, Additional history exists Cervical Cancer Screening 11/18/2026 HPV/Cotest (Cervical Cancer Screening) 11/18/2026 11/18/2021, 11/18/2021 HPV Vaccines Aged Out No longer eligi ble based on patient's age to complete this topic Procedures Procedure Name Priority Date/Time Associated Diagnosis Comments PAP TEST Today 11/18/2021 15:45 EDT Encounter for other general examination from Last 3 Months or Most Recently Relevant to Health Maintenance Results * PAP TEST (11/18/2021 15:45 EDT) Specimens A. Cervix and/or Endocervix , ThinPrep Imaging System with Manual Evaluation 11/28/2021 8:10 EDT [facility] Specimen Adequacy Satisfactory for Evaluation - transformation zone component present 11/28/2021 8:10 EDT [facility] General Categorization Negative for intraepithelial lesion or malignancy 11/28/2021 8:10 EDT [facility] Attestation . 11/28/2021 8:10 T [facility] at 0810 Clinical History See below 11/29/19 8:10 EDT [facility] HPV The result for the Human Papillomavirus (HPV) Detection-High Risk Types is Negative. No E6 or E7 mRNA is detected from HPV types 16,18,31,33,35,39 ,45,51,52,56,58,5 9,66, and 68 by shoulder joiner mediated amplification.Fabi ting was performed on specimen [id number] and was resulted on 11/28/2021 0759 EDT by HORACE, LAB INSTRUMENT RESULTS IN 11/28/2021 8:10 EDT [facility] Performing Lab [facility] 11/28/2021 8:10 EDT [facility] Scanned Images 11/28/2021 8:10 EDT [facility] Papanicolaou smear specimen (specimen) CERVIX UTERI STRUCTURE / Unknown 11/18/2021 15:45 EDT 11/20/2021 8:58 EDT Yadira Schmitt PACKAGING SUPERVISOR PATHOLOGY ORDERABLES [facility] [address] [place] [address] from Last 3 Months or Most Recently Relevant to Health Maintenance Care Teams Salvage Clerk Relationship Specialty Start Date End Date Viktor Alvarez MD [facility] [place] [address] [facility] - General 06/05/22
--- OUTSIDE RECORDS SUMMARY | 2024-02-26 14:48 | XMS_ITS | Encounter Summary ---
Author Organization [facility] Address [address] [place] [address] Care Team Providers Care Phosphorus Processing Supervisor Name Role Phone Viktor Alvarez MD Primary Care Provider [phone] Encounter Details Date Type Department Care Team (Late st Contact Info) Description 11/20/2021 Lab Requisition [facility] Pathology & Laboratory Medicine - [address] [address] Yadira Schmitt, [address] [place] [address] Encounter for other general examination Social History Tobacco Use Types Packs/Day Years Used Date Smoking Tobacco: Never Assessed Interpersonal Safety Answer Date Record ed Physically Hurt Never 02/05/2020 Verbally Threaten Not on file 02/05/2020 Sex and Gender Information Value Date Recorded Sex Assigned at Not on file Gender Identity Not on file Sexual Orientation Not on file documented as of this encounter Plan of Treatment Not on file documented as of this encounter Procedures Procedure Name Priority Date/Time Associated Diagnosis Comments PAP TEST Today 11/18/2021 15:45 EDT Encounter for other general examination HPV DNA DETECTION WITH GENOTYPING, PCR Today 11/18/2021 15:45 EDT Encounter for other general examination documented in this encounter Results * HUMAN PAPILLOMAVIRUS (HPV) DETECTION-HIGH RISK TYPES (11/18/2021 15:45 EDT) HPV other High Risk types, PCR Negative Negative 11/28/2021 8:10 EDT [facility] Comment:No E6 or E7 mRNA is detected from HPV types 16,18,31,33,35,39,45,51,52,56,58,59,66, and 68 by public space attendant mediated amplification. Papanicolaou smear specimen (specimen) CERVIX UTERI STRUCTURE / Unknown 11/18/2021 15:45 EDT 11/26/2021 8:01 EDT Yadira Jesus Manuel Oskar WASH OPERATOR MICROBIOLOGY - GENER AL ORDERABLES [facility] [address] [place] [address] * PAP TEST (11/18/2021 15:45 EDT) Specimens A. Cervix and/or Endocervix , ThinPrep Imaging System with Manual Evaluation 11/28/2021 8:10 EDT [facility] Specimen Adequacy Satisfactory for Evaluation - transformation zone component present 11/28/2021 8:10 [facility] General Categorization Negative for intraepithelial lesion or malignancy 11/28/2021 8:10 [facility] Attestation . 11/28/2021 8:10 [facility] at 0810 Clinical History See below 11/29/19 8:10 T [facility] HPV The result for the Human Papillomavirus (HPV) Detection-High Risk Types is Negative. No E6 or E7 mRNA is detected from HPV types 16,18,31,33,35,39 ,45,51,52,56,58,5 9,66, and 68 by public space attendant mediated amplification.Fabi ting was performed on specimen [id number] and was resulted on 11/28/2021 0759 EDT by HORACE, LAB INSTRUMENT RESULTS IN 11/28/2021 8:10 T [facility] Performing Lab [facility] 11/28/2021 8:10 T [facility] Scanned Images 11/28/2021 8:10 EDT [facility] Papanicolaou smear specimen (specimen) CERVIX UTERI STRUCTURE / Unknown 11/18/2021 15:45 EDT 11/20/2021 8:58 EDT Yadira Jesus Manuel BhagatOskar WASH OPERATOR PATHOLOGY ORDERABLES [facility] [address] [place] [address] documented in this encounter Visit Diagnoses Diagnosis Encounter for other general examination documented in this encounter Care Teams Phosphorus Processing Supervisor Relationship Specialty Start Date End Date Viktor Alvarez MD [address] [place] [address] PCP - General 06/05/22 documented as of this encounter
--- OUTSIDE RECORDS SUMMARY | 2024-02-26 14:48 | XMS_ITS | Encounter Summary ---
Author Organization [facility] Address [address] [place] [address] Care Team Providers Care Unmanned Aircraft Systems Roboticist Name Role Phone Viktor Alvarez MD Primary Care Provider [phone] Encounter Details Date Type Department Care Team (Late st Contact Info) Description 07/01/2022 Lab Requisition [facility] Pathology & Laboratory Medicine - [facility] [address] [place] [address] Ozzy Winter MD [address] [place] [phone] Unspecified acute appendicitis Social History Tobacco Use Types Packs/Day Years [...] Procedure Name Priority Date/Time Associated Diagnosis Comments SURGICAL PATHOLOGY Today 06/30/2022 20 :20 EST Unspecified acute appendicitis documented in this encounter Results * SURGICAL PATHOLOGY (06/30/2022 20:20 EST) Note to Patient The following pathology results have been interpreted by your pathologist and may be available to you before your health provider has had the opportunity to review them. Please allow time for your provider to receive these results and explore management options, if applicable. 07/04/2022 11:27 [facility] Final Diagnosis A. APPENDIX, APPENDECTOMY: - Acute necrotizing appendicitis and periappendicitis 07/04/2022 11:27 [facility] Attestation There was significant resident/fellow involvement in the diagnostic evaluation of this case. By the signature below, the attending physician certifies that they have personally conducted a gross and/or microscopic examination of the described specimens and rendered or confirmed the above diagnosis. 07/04/2022 11:27 [facility] at 1127 Clinical History Acute appendicitis 07/04/2022 11:27 [facility] Gross Description A. Received in formalin labelled with proper patient identification (initials M, H) and appendix is a previously disrupted appendix received in 3 pieces (7.8 cm in combined length x 0.6 cm in diameter), with an abundant amount of attached hemorrhagic mesoappendix. Also present are 2 pieces of detached fat (2.5 x 2.4 x 0.4 cm in aggregate). The presumed proximal margin is stapled. The serosa is fabian-brown and partially surfaced by white-fabian exudate. The cut surface is fabian-white and hemorrhagic. The wall ranges from less than 0.1 cm to 0.2 cm in thickness. A presumed perforation site (approximately 0.8 cm in greatest dimension) is identified. The lumen ranges from 0.1 cm to 0.6 cm in diameter. A fecalith is not identified. The proximal margin is inked blue. The section adjacent to the stapled presumed proximal margin, 2 pharmaceutical specialty representative cross sections including the presumed perforation site, and one half of the longitudinally bisected distal tip are submitted in A1. DAVID GONZALEZ(ASCP) 07/02/2022 9:46 07/04/2022 11:27 [facility] Resident/Brijesh w: Patricia Rai MD 07/04/2022 11:27 [facility] Performing Lab [facility] 11:27 [facility] Scanned Images 07/04/2022 11:27 [facility] Tissue ENTIRE APPENDIX / Unknown 06/30/2022 20:20 EST 07/01/2022 17:28 EST Ozzy Winter MD PATHOLOGY ORDERABLES Performing Organization Address City/State/[facility] Co de Phone Number [facility] [address] [place] [address] documented in this encounter Visit Diagnoses Diagnosis Unspecified acute appendicitis documented in this encounter Care Teams Unmanned Aircraft Systems Roboticist Relationship Specialty Start Date End Date Viktor Alvarez MD [facility] [place] [address] PCP - General 06/05/22 documented as of this encounter
--- OUTSIDE RECORDS SUMMARY | 2024-02-26 14:48 | XMS_ITS | Encounter Summary ---
Author Organization [facility] Address [address] [place] [address] Care Team Providers Care Metal Washing Machine Operator Name Role Phone Robert Santana APRN Primary Care Provider [phone] Viktor Alvarez MD Primary Care Provider [phone] Encounter Details Date Type Department Care Team (Late st Contact Info) Description 08/17/2020 Lab Requisition [facility] Pathology & Laboratory Medicine - [facility] [address] [place], [place] [address] Outr Resulting Lab, Provider Social History Tobacco Use Types Packs/Day Years [...] Procedure Name Priority Date/Time Associated Diagnosis Comments ZZCOVID-19 TEST [facility] PCR Today 08/17/2020 10:15 EST COVID-19 TESTING Routine 08/17/2020 10:1 5 EST documented in this encounter Results * COVID-19 TEST [facility] PCR (08/17/2020 10:15 EST) Swab ENTIRE NASOPHARYNX / Unknown 08/17/2020 10:15 EST 08/17/2020 16:29 EST Provider Outr Resulting Lab MICROBIOLOGY - GENERAL ORDERABLES Performing Organization Address [facility] [address]/ZIP Co de Phone Number [facility] [address] [place] [address] * COVID-19 TESTING (08/17/2020 10:15 EST) COVID-19 rt-PCR Result Negative Negative 08/18/2020 11:40 EST [facility] Comment: This test has not been FDA cleared or approved. This test has been authorized by FDA under an EUA for use by authorized laboratories. This test has been authorized only for detection of nucleic acid from 2019-nCoV, not for any other viruses or pathogens. This test is only authorized for the duration of the declaration that circumstances exist justifying the authorization of emergency use of in vitro diagnostic tests for detection and/or diagnosis of 2019-nCoV under section 564(b)(1) of Act, 21 U.S.C ?? 360bbb-3(b) (1), unless the authorization is terminated or revoked sooner. Negative results do not preclude 2019-nCoV infection and should not be used as the sole basis for treatment or other patient management decisions. Negative results must be combined with clinical observations, patient history, and epidemiological information. Testing was performed using the yovany SARS-CoV-2 assay ([employer] on the Yovany 6800 System Performing Lab [facility] [address] [facility] 08/18/2020 11:40 EST [facility] Swab 08/17/2020 10:1 5 EST 08/17/2020 16:29 EST Provider Outr Resulting Lab MICROBIOLOGY - GENERAL ORDERABLES [facility] [address] [place] [address] documented in this encounter Visit Diagnoses Not on filedocumented in this encounter Care Teams Metal Washing Machine Operator Relationship Specialty Start Date End Date Robert Santana APRN [address] [place] [phone] PCP - General 06/28/12 08/20/20 Viktor Alvarez MD [facility] [address] PCP - General 06/05/22 documented as of this encounter
--- OUTSIDE RECORDS SUMMARY | 2024-02-26 14:48 | XMS_ITS | Referral Summary ---
Author Organization [facility] Address [address] [place] [address] Care Team Providers Care Studio Data Analyst Name Role Phone Viktor Alvarez MD Primary Care Provider [phone] Social History Tobacco Use Types Packs/Day Years Used Date Smoking Tobacco: Never Assessed Interpersonal Safety Answer Date Record ed Physically Hurt Never 02/05/2020 Verbally Threaten Not on file 02/05/2020 Sex and Gender Information Value Date Recorded Sex Assigned at Not on file Gender Identity Not on file Sexual Orientation Not on file Plan of Treatment Not on file Procedures Procedure Name Priority Date/Time Associated Diagnosis Comments PAP TEST Today 11/18/2021 15:45 EDT Encounter for other general examination from Last 3 Months or Most Recently Relevant to Health Maintenance Results * PAP TEST (11/18/2021 15:45 EDT) Specimens A. Cervix and/or Endocervix , ThinPrep Imaging System with Manual Evaluation 11/28/2021 8:10 [facility] Specimen Adequacy Satisfactory for Evaluation - transformation zone component present 11/28/2021 8:10 [facility] General Categorization Negative for intraepithelial lesion or malignancy 11/28/2021 8:10 [facility] Attestation . 11/28/2021 8:10 [facility] at 0810 Clinical History See below 11/29/19 8:10 [facility] HPV The result for the Human Papillomavirus (HPV) Detection-High Risk Types is Negative. No E6 or E7 mRNA is detected from HPV types 16,18,31,33,35,39 ,45,51,52,56,58,5 9,66, and 68 by bell hole digger mediated amplification.Fabi ting was performed on specimen [id number] and was resulted on 11/28/2021 0759 EDT by HORACE, LAB INSTRUMENT RESULTS IN 11/28/2021 8:10 EDT [facility] Performing Lab [facility] 11/28/2021 8:10 EDT [facility] Scanned Images 11/28/2021 8:10 EDT [facility] Papanicolaou smear specimen (specimen) CERVIX UTERI STRUCTURE / Unknown 11/18/2021 15:45 EDT 11/20/2021 8:58 EDT Yadira Schmitt PERFECT BINDER SETTER PATHOLOGY ORDERABLES [facility] [address] [place] [address] from Last 3 Months or Most Recently Relevant to Health Maintenance Care Teams Studio Data Analyst Relationship Specialty Start Date End Date Viktor Alvarez MD [facility] [place] [address] PCP - General 06/05/22
--- OUTSIDE RECORDS SUMMARY | 2024-02-26 14:49 | XMS_ITS | Continuity of Care Document ---
Author Organization [place] [facility], [facility] Address [address] [place] [address] [address] [place] [address] Care Team Providers Care Chlorination Operator Name Role Phone TIMYM BONILLA Primary Care Provider Assessment No assessment recorded. Plan of Treatment Reminders Order Date Submit Date Provider Last Modified By Organization Details Last Modified Time Details Appointments Acute 10 2023 09:28A M Not available Not available Not available Follow Up 30 2023 04:10P M Not available Not available Not available Lab culture, wound - left fourth digit 2023 024 [email or web address] [address] [place] [address] [place], [address], 02/26/2024 11:50:48 influenza virus A + B + SARS-CoV- 2 (COVID19) Ag panel, rapid IA, upper respirato ry specimen 2023 024 [email or web address] [facility], [address] [place] [address], [address], [place], [address], 02/26/2024 11:01:00 rapid strep group A, throat 2023 024 [email or web address] [facility], [address] [place] [address], [address], [place], [address], 02/26/2024 11:00:59 Referral None recorded. Procedures None recorded. Surgeries None recorded. Imaging None recorded. Medication Orders doxycycli ne hyclate 100 mg capsule 2023 024 [facility], [address] [place], [address], 02/26/2024 11:01:00 Diflucan 150 mg tablet 2023 024 [facility], [address] [place], [address], 02/26/2024 11:01:00 mupirocin 2 % topical ointment 2023 024 [facility], [address] [place], [address], 02/26/2024 11:00:59 Patient TargetsNo targets recorded. Patient Instructions Encounter Date Encounter Id Patient Instructions Last Modified By Organization Details Last Modified Time 02/26/2024 [id number] 1. I have sent prescription for doxycycline and antibiotic you will take twice a day for the next 7 days. This will help treat the infection not only of the finger but also the face and potentially if there is a bacterial infection in the lungs. Please remember that this medication can cause sun sensitivity. While you are on this medication please be careful to take caution with the sun. Please also make sure you drink it with adequate amounts of water as it can cause some esophageal irritation if it were to get stuck. Please take the medication either 1 hour before eating or 2 hours after eating 2. Wound culture of the finger was obtained will take 2 days to result. Once we have those available we will communicate them to you. 3. Your testing for COVID, flu, strep are all negative. I do not feel additional testing warranted at this time. 4. Please take your blood pressure medication when you get home. [email or web address] Not available 02/26/2024 11:02:12 Reason for Referral None Reported. Results Created Date Observation Date Name Description Value Unit Range Abnormal Flag LastModifiedBy Organization Detail LastModifiedTime 02/26/20 24 02/26/2024 influ karen virus A + B + SARS- CoV-2 (COVI D19) Ag panel , rapid IA, upper respi rator y speci men Influenza A negati ve Not Available [address], [place], [address], 02/26/2024 10:16:23 02/26/20 24 02/26/2024 influ karen virus A + B + SARS- CoV-2 (COVI D19) Ag panel , rapid IA, upper respi rator y speci men Influenza B negati ve Not Available [address], [place], [address], 02/26/2024 10:16:23 02/26/20 24 02/26/2024 influ karen virus A + B + SARS- CoV-2 (COVI D19) Ag panel , rapid IA, upper respi rator y speci men SARS-COV-2 negati ve Not Available [address], [place], [address], 02/26/2024 10:16:23 02/26/20 24 02/26/2024 rapid strep group A, throa t Strep negati ve Not Available [address], [place], [address], 02/26/2024 10:16:47 Result Notes None recorded. Problems Name Status Onset Date Resolution Date Notes Provider Name and Address Organization Details Recorded Time Migraine Active 2007 Problem Code: G43.909; Problem Code Type: ICD-10; Not Available [facility] 3 05:04:04 Gastroesophagea l reflux disease without esophagitis Active 2014 Problem Code: K21.9; Problem Code Type: ICD-10; Not Available [facility] 3 05:04:04 Acute upper respiratory infection Completed 202010/03/2020 08/17/2020 - Comments only - Viktor Alvarez MD - Flu negative, COVID swab pending, assume COVID until test negative. Discussed supportive care. RTC if more SOB, not tolerating PO. Benzonoate prn cough. Problem Code: J06.9; Problem Code Type: ICD-10; Not Available [facility] 3 05:04:04 Generalized anxiety disorder Active 202104/23/2022 - Comments only - Timmy Bonilla RPA - Doing well on sertraline. Problem Code: F41.1; Problem Code Type: ICD-10; TIMMY BONILLA PA-C [address], [place], [address] , [facility] 4 17:14:58 Nasal congestion Completed 201908/17/2020 Problem Code: R09.81; Problem Code Type: ICD-10; Not Available [facility] 3 05:04:13 Acute sinusitis Completed 201808/17/2020 Problem Code: J01.90; Problem Code Type: ICD-10; Not Available [facility] 3 05:04:14 Arthralgia of the ankle and/or foot Completed 201708/17/2020 Problem Code: M25.572; Problem Code Type: ICD-10; Not Available [facility] 3 05:04:16 Disorder of nasal sinus Completed 201612/09/2017 Not Available [facility] 3 05:04:16 Pain in thoracic spine Completed 201508/17/2020 Problem Code: M54.9; Problem Code Type: ICD-10; Not Available [facility] 3 05:04:17 Temporomandibul ar joint disorder Completed 201808/17/2020 Problem Code: M26.69; Problem Code Type: ICD-10; Not Available [facility] 3 05:04:21 Shoulder joint pain Completed 201308/17/2020 Problem Code: 719.41; Problem Code Type: ICD-9; Not Available [facility] 3 05:04:22 Acute pharyngitis Completed 201908/17/2020 Problem Code: J02.9; Problem Code Type: ICD-10; Not Available [facility] 3 05:04:25 Allergic rhinitis Completed 201108/17/2020 Not Available [facility] 3 05:04:25 Acute upper respiratory infection Completed 201612/09/2017 Problem Code: J06.9; Problem Code Type: ICD-10; Not Available [facility] 3 05:04:27 Adult health examination Active 2022 Problem Code: Z00.00; Problem Code Type: ICD-10; Not Available [facility] 4 05:35:42 Essential hypertension Active [address], [address] 4 08:27:58 Paronychia of finger Active [address], [address] 4 10:57:24 Cough Active [address], [address] 4 10:57:48 Cellulitis of face Active [address], [address] 4 10:58:00 Problem Notes None recorded. Medical Equipment None Reported. Allergies Allergen ID Allergen Name Allergen Category Reaction Reaction Severity Criticality Documentation Date Start Date Code Code System Note Provider Name and Address Organization Details Recorded Time lactose Not available Not available Not available Not available 05/15/20232013 6211 RxNorm Aller gyNam e: 'LACT OSE INTOL ERANC E'; Not Available [facility] 3 16:11:41 Medications Name Sig Start Date Stop Date Status Note LastModified by Organization Details LastModified Time multivita min tablet Take 1 by mouth once a day 06/23 completed Not Available Not Available Not Available cyclobenz aprine 10 mg tablet 1 TAB at bedtime 10/31 completed Not Available Not Available Not Available amoxicill in 500 mg capsule TAKE ONE CAPSULE BY MOUTH TWO TIMES DAILY FOR 10 DAYS 11/19 completed Not Available Not Available Not Available Vitamin B-2 100 mg tablet Take 2 twice daily. 04/10 completed Not Available Not Available Not Available doxycycli ne hyclate 100 mg capsule Take 1 capsule twice a day by oral route for 7 days. 2023 active Not Available Not Available Not Avai lable Flonase 50 mcg/DOSE nasal inhaler 2 SPRAY daily 05/05 completed Not Available Not Available Not Available Maxalt 10 mg tablet Take at 1st onset of migraine , may repeat in 2hrs prn. Max 30mg in 24hrs 04/10 completed Initiate d by Dr. Tracy taylor. Failed Imitrex. Not Available Not Available Not Available Diflucan 150 mg tablet Take 1 tablet at onset of symptoms concerni ng for yeast. Can repeat single tablet in 72 hours if symptoms not complete ly resolved . 2023 active Not Available Not Available Not Avai lable penicilli n V potassium 500 mg tablet 1 TAB twice daily 02/22 completed Not Available Not Available Not Available Zyrtec 10 mg tablet 1 TAB daily 02/12 completed Not Available Not Available Not Available tramadol 50 mg tablet 1 TAB four times daily 10/31 completed Not Available Not Available Not Available Tessalon Perles 100 mg capsule take 1 tab po TID prn cough 08/31 completed Not Available Not Available Not Available amoxicill in 875 mg tablet take 1 tab by mouth twice daily X 10 days 08/17 completed Not Available Not Available Not Available Valium 5 mg tablet 12/07 completed Not Available Not Available Not Available ciproflox acin 0.3 % eye drops 1-2 drops four times a day for 5-7 days 08/17 completed Not Available Not Available Not Available Compazine 5 mg tablet 1 TAB every six hours 04/10 completed Not Available Not Available Not Available nystatin 100,000 unit/gram topical cream apply three time daily to affected area of nipples after breast feeding 12/09 completed Not Available Not Available Not Available Vitamin B-6 100 mg tablet 1 tab daily 10/13 completed Not Available Not Available Not Available Advil 200 mg tablet 3 tabs .q8h prn pain 12/11 completed Not Available Not Available Not Available mupirocin 2 % topical ointment APPLY A SMALL AMOUNT TO THE AFFECTED AREA BY TOPICAL ROUTE 3 TIMES PER DAY x 5-7 days 2023 active Not Available Not Available Not Avai lable Imitrex 100 mg tablet 1 01/20 completed Not Available Not Available Not Available Cheratuss in AC 10 mg-100 mg/5 mL oral liquid TAKE 5-10ML FOUR TIMES A DAY NEEDED FOR COUGH 12/11 completed Not Available Not Available Not Available lisinopri l 10 mg-hydroc hlorothia zide 12.5 mg tablet TAKE ONE TABLET BY MOUTH EVERY DAY active Not Available Not Available No t Available Vitamin C 250 mg tablet Take 1 tablet by mouth once a day 04/23 completed Not Available Not Available Not Available Naprosyn 500 mg tablet 1 TAB twice daily 10/31 completed Not Available Not Available Not Available sertralin e 50 mg tablet TAKE ONE TABLET BY MOUTH EVERY DAY active Not Available Not Available No t Available Unisom (doxylami ne) 25 mg tablet 10/13 completed Not Available Not Available Not Available amoxicill in 875 mg-potass ium clavulana te 125 mg tablet TAKE ONE TABLET BY MOUTH TWICE A DAY FOR 5 DAYS 06/23 completed Not Available Not Available Not Available Calcium 500 + D 500 mg-5 mcg (200 unit) tablet Take 1 tablet by mouth once a day 06/23 completed Not Available Not Available Not Available TriNessa (28) 0.18 mg(7)/0.2 15 mg(7)/0.2 5 mg(7)-35 mcg tablet 1 qd 02/26 completed Not Available Not Available Not Available Ortho-Cyc brisa (28) 0.25 mg-35 mcg tablet 12/11 completed [facility] Not Available Not Available Not Available Albuterol Sulfate HFA 90 mcg/Actua tion aerosol inhaler 2 PUFFS Q 4-6 hours 10/03 completed Not Available Not Available Not Available Mirena 2023 active 11/10/23 new Mirena device,O BGYN Not Available Not Available Not Available ProAir HFA 90 mcg/actua tion aerosol inhaler 2 puffs every 4 hrs as needed. 12/11 completed Not Available Not Available Not Available hydrochlo rothiazid e 12.5 mg tablet TAKE ONE TABLET BY MOUTH EVERY DAY active Not Available Not Available No t Available Heartburn Preventio n 20 mg tablet Take 1 tablet by mouth once a day active Not Available Not Available No t Available omeprazol e 20 mg tablet,de layed release Take 1 by mouth daily 12/11 completed Not Available Not Available Not Available guanfacin e ER 1 mg tablet,ex tended release 24 hr TAKE ONE TABLET BY MOUTH EVERY DAY AT NIGHT 09/08 completed Not Available Not Available Not Available Plus (calcium carbonate ) 27 mg iron-1 mg tablet Take 1 tablet by mouth once a day 09/06 completed Not Available Not Available Not Available Aleve 220 mg capsule Take 2 with Maxalt for headache relief. 12/11 completed Initiate d by Dr. Tracy taylor Not Available Not Available Not Available Vitamin D2 active Not Available Not Available Not Available magnesium 400 mg (as magnesium oxide) capsule Take 1 cap by mouth daily 12/09 completed Not Available Not Available Not Available Flonase Allergy Relief 50 mcg/actua tion nasal spray,millie pension 1 spray each side 2 times a day 12/09 completed Not Available Not Available Not Available Vitals Date Recorded Body height Body mass index (BMI) Body weight Body temperature Oxygen saturation Oxygen saturation in Arterial blood by Pulse oximetry Heart rate Respiratory rate Systolic blood pressure Diastolic blood pressure Provider Name and Address Organization Details Last Updated DateTime 4 161.9 cm 30.5 kg/m2 82253.2 6 g 99.2 [degF] 99 % 99 % 83 /min 17 /min 144 mm[Hg] 112 mm[Hg] Seema Watkins MA [facility] 10:01:46 Social History Question Answer Notes LastModified by Organizat ion Details LastModified Time Tobacco Smoking Status Never Smoker TERRELL KATHLEEN RN null, [facility] 06/23/2023 13:47:50 What Was The Date Of Your Most Recent Tobacco Screening? 02/26/2024 [email or web address] Information not available 02/26/2024 Has Tobacco Cessation Counseling Been Provided? Yes [email or web address] Information not available 02/26/2024 On What Date Was Tobacco Cessation Counseling Provided? 02/26/2024 [email or web address] Information not available 02/26/2024 Do You Or Have You Ever Used Any Other Forms Of Tobacco Or Nicotine? No [email or web address] Information not available 06/23/2023 Sex: Female Functional Status None recorded. Mental Status None recorded. Family History Relationship Description Onset Age of this Age Resolved Age Notes Mother Family history of Depression Notes:*Problem: Mother: Raymond e, 1954, depression, Tourette's Syndrome, hiatal hernia, HTN Father: Alive, 1960, DVTs Sisters: one, younger, depression Brothers: none Children: none Family History of: Breast cancer: Mother - diagnosed 2012, age 56. MGM, PGM Prostate cancer: PGF Heart Disease: PGM s/p OK, MGF s/p pacer placement Other: no Medical History No medical history recorded. Gynecological HistoryNo gynecological history recorded. Obstetrics History GPAL:G 0 P 0 0 0 0 Immunizations Vaccine Type Date Status Provider Name and Address Organization Details Recorded Time Tdap 02/18/2019 completed Not Available [facility] 06:27:18 Influenza, split virus, trivalent, PF 03/30/2015 completed Not Available [facility] 05/15/2023 06:27:18 Influenza, split virus, quadrivalent, PF 04/23/2018 completed Not Available [facility] 05/15/2023 06:27:18 Influenza, split virus, quadrivalent, PF 04/23/2022 completed Not Available [facility] 05/15/2023 06:27:18 Influenza, MDCK, quadrivalent, PF 05/01/2017 completed Not Available [facility] 05/15/2023 06:27:18 COVID-19, mRNA, LNP-S, PF, 30 mcg/0.3 mL dose 09/09/2020 completed Not Available [facility] 05/15/2023 06:27:18 COVID-19, mRNA, LNP-S, PF, 30 mcg/0.3 mL dose 09/24/2020 completed Not Available [facility] 05/15/2023 06:27:18 SARS-COV-2 (COVID-19) vaccine, UNSPECIFIED 05/06/2021 completed Not Available [facility] 05/15/2023 06:27:19 influenza, unspecified formulation 03/23/2019 completed Not Available [facility] 05/15/2023 06:27:19 Past Encounters Encounter ID Performer Location Encounter Start Date Encounter Closed Date Diagnosis/Indication Diagnosis SNOMED-CT Code [id number] TIMMY BONILLA PA-C [address] [place] [address] 02/12/2024 07:33:00 02/12/2024 07:57:16 Essential hypertension 56222825 [id number] GLO IVY PA-C [address] [place] [address] 02/26/2024 09:31:04 02/26/2024 11:04:29 Paronychia of finger 855641185 Cough 51237938 Cellulitis of face 2001 Health Concerns Section Related Observation LastModified by Organization Detai ls LastModified Time None Recorded Concern Status LastModified by Organization Details LastModified Time None Recorded Payers Encounter Date Sequence Insurance Name Policy Number Policy Anderson Covered Member ID Anderson Member ID Guarantor Name 02/26/2024 1 [place]: [facility] [id number] Keysha Dhaliwal [id number] Keysha Dhaliwal Notes Date Note Type Note Provider Name and Address Organization Details Recorded Time 02/26/2024 text/html HPI Notes: Kevin is a 33-year-old female who presents with multiple complaints as below. #1 Has had ongoing cough now for up to 2 weeks. Initially felt more of a dry cough with postnasal drip and now is having more consistent coughing and feels like she is breathing a bit shallowly. She has felt subjectively hot and cold. She has had no nausea or vomiting. She has had some small amount of diarrhea. She has had decreased appetite but is drinking fluids adequately. No urinary complaints. She denies chest pain with her cough. She does not feel short of breath. She has not been wheezing. She has no history of asthma or pneumonia. She is not a smoker she has been using Delsym, vitamin C and Advil to help with symptoms. She has some mild ear discomfort bilaterally. # 2 has a hangnail on the left fourth digit which she feels like is taking an extended period of time to heal. She has been applying Neosporin ointment. She feels like the area has become, red and swollen and has had clear and bloody drainage. She denies history of MRSA but states that her was recently diagnosed with MRSA and turns out they have been sharing the same Neosporin bottle. # 3 also developing some redness and swelling along the left side of the cheek. There was a small area near the jawbone which almost felt like area of pimple but now this area has become more firm and she has redness approaching the upper mandible and into the underside of the chin. This has worsened greatly since last night. She denies any discomfort inside the mouth. No dental issues. Actually saw 3 weeks ago and had no concerns at that time. [address], [place], [address], [facility]. 02/26/2024 11:46:02 OBGyn Episode No OBEpisode recorded.
--- OUTSIDE RECORDS SUMMARY | 2024-02-26 14:49 | XMS_ITS | Data Portability ---
Author Organization [place] - [facility], [facility] Address [address] [place] [address] Care Team Providers Care Agent Telegrapher Name Role Phone TIMMY ROBBINS Primary Care Provider Assessment Encounter Date Assessment Date Assessment LastModified by Organization Details LastModified Time 09/09/2023 09/09/2023 Edies blood pressure continues to run high. Guanfacine will be discontinued. It did not make any significant improvement in sleep habits. We will start hctz for bp control. Continue with sertraline. This has continued to help her anxiety. Followup in 6-8 weeks for bp check and bmp. adin Not available 09/09/2023 08:24:13 Plan of Treatment Reminders Order Date Submit Date Provider Last Modified By Organization Details Last Modified Time Details Appointments Acute 10 2023 09:28A M Not available Not available Not available Follow Up 30 2023 04:10P M Not available Not available Not available Lab BMP, serum or plasma - 1 mint tube collected from right ac. pt tolerated well. 2023 024 RADHA [facility] (Registration ), [address] [place] [address] [place], [address], 02/19/2024 08:33:37 culture, wound - left fourth digit 2023 024 ATHENAFAX [facility] (Registration ), [address] [place] [address] [place], [address], 02/26/2024 11:50:48 influenza virus A + B + SARS-CoV- 2 (COVID19) Ag panel, rapid IA, upper respirato ry specimen [address], [address] [place] [address], [facility], [place], [address], 02/26/2024 11:01:00 rapid strep group A, throat [address], [address] [place] [address], [address], [place], [address], 02/26/2024 11:00:59 Referral None recorded. Procedures None recorded. Surgeries None recorded. Imaging None recorded. Medication Orders guanfacin e ER 1 mg tablet,ex tended release 24 hr 2022 023 que [facility], [address] [place] [address], [address], 09/09/2023 08:21:55 hydrochlo rothiazid e 12.5 mg tablet 2023 024 [facility], [address] [place] [address], [address], 09/09/2023 08:18:49 lisinopri l 10 mg-hydroc hlorothia zide 12.5 mg tablet 2023 024 [facility], [address] [place] [address], [id number], 02/12/2024 11:45:59 doxycycli ne hyclate 100 mg capsule 2023 024 RADHA [facility], [address] [place] [address], [address], 02/26/2024 11:01:00 Diflucan 150 mg tablet 2023 024 [facility], [address] [place], [address], 02/26/2024 11:01:00 mupirocin 2 % topical ointment 2023 024 [facility], [address] [place], [address], 02/26/2024 11:00:59 Patient TargetsNo targets recorded. Patient Instructions Encounter Date Encounter Id Patient Instructions Last Modified By Organization Details Last Modified Time 09/09/2023 [id number] Keysha - you ca n stop the guanfacine. We will start hydrochlorothiazide for blood pressure control. Take this in the morning. It may make you urinate a bit more. We will see you back in 6 months to recheck blood pressure and do blood work. [email or web address] 3 Not available 09/09/2023 08:20:29 11/20/2023 [id number] Keysha - check blood pressures a couple of times a week, and bring these with you to your followup in 3 months. The ideal goal bp is 120/80. [email or web address] 3 Not available 11/20/2023 07:38:54 02/12/2024 [id number] Keysha - we meka l start lisinopril/hctz in place of just hydrochlorothiazide. Continue to check your blood pressures. I will call when I have results of blood work. [email or web address] 3 Not available 02/12/2024 07:54:57 02/26/2024 [id number] 1. I have sent prescription for doxycycline [...] Range Abnormal Flag LastModifiedBy Organization Detail LastModifiedTime 02/12/20 24 02/12/2024 BASIC METAB OLIC PANEL calcium 9.5 mg/dL 8.5-10 .1 normal Not Available [facility] (Registration ) [address] [place] [address] [place], [address], 02/12/2024 16:35:18 02/12/20 24 02/12/2024 BASIC METAB OLIC PANEL glucose 105 mg/dL 74-106 normal Not Available [facility] (Registration ) [address] [place] [address] [place], [address], 02/12/2024 16:35:18 02/12/20 24 02/12/2024 BASIC METAB OLIC PANEL BUN 11 mg/dL 7-18 normal Not Available [facility] (Registration ) [address] [place] [address] [place], [address], 02/12/2024 16:35:18 02/12/20 24 02/12/2024 BASIC METAB OLIC PANEL creatinine 0.9 mg/dL 0.55-1 .02 normal Not Available [facility] (Registration ) [address] [place] [address] [place], [address], 02/12/2024 16:35:18 02/12/20 24 02/12/2024 BASIC METAB OLIC PANEL estimated GFR 86.03 mL/min /1.73m 2 Not Available [facility] (Registration ) [address] [place] [address] [place], [address], 02/12/2024 16:35:18 02/12/20 24 02/12/2024 BASIC METAB OLIC PANEL sodium 139 mmol/ L 136-14 5 normal Not Available [facility] (Registration ) [address] [place] [address] [place], [address], 02/12/2024 16:35:18 02/12/20 24 02/12/2024 BASIC METAB OLIC PANEL potassium 3.9 mmol/ L 3.5-5. 1 normal Not Available [facility] (Registration ) [address] [place] [address] [facility] [place], [address], 02/12/2024 16:35:18 02/12/20 24 02/12/2024 BASIC METAB OLIC PANEL chloride 102 mmol/ L 98-107 normal Not Available [facility] (Registration ) [address] [place] [address] [facility] [place], [address], 02/12/2024 16:35:18 02/12/20 24 02/12/2024 BASIC METAB OLIC PANEL CO2 29.5 mmol/ L 21.0-3 2.0 normal Not Available [facility] (Registration ) [address] [place] [address] [place], [address], 02/12/2024 16:35:18 02/12/20 24 02/12/2024 BASIC METAB OLIC PANEL anion gap 7.5 mmol/ L 3-11 normal Not Available [facility] (Registration ) [address] [place] [address] [place], [address], 02/12/2024 16:35:18 02/26/20 24 02/26/2024 influ karen virus A + B + SARS- CoV-2 (COVI D19) Ag panel , rapid IA, upper respi rator y speci men Influenza A negati ve Not Available [address], [place], [address], 02/26/2024 10:16:23 02/26/20 24 02/26/2024 influ karen virus A + B + SARS- CoV-2 (COVI D19) Ag panel , rapid IA, upper respi rator y speci men Influenza B negati ve Not Available [address], [place], [address], 02/26/2024 10:16:23 02/26/20 24 02/26/2024 influ karen virus A + B + SARS- CoV-2 (COVI D19) Ag panel , rapid IA, upper respi rator y speci men SARS-COV-2 negati ve Not Available [address], [place], [address], 02/26/2024 10:16:23 02/26/20 24 02/26/2024 rapid strep group A, throa t Strep negati ve Not Available [address], [place], [address], 02/26/2024 10:16:47 12/28/19 24 12/28/2023 mammo graph y imagi ng repor t Paticlaudia t Name: Johnson Duque Unit #: [id number] Loc: DI Orderi ng Provid er: Alma Egan sa, M.D. Accoun t #: [id number] Status : REG CLI Primar y Care Provid er: Robbin on,Rita valerie Date of Exam: Sex: F Admiss ion Date: : 1989 Age: 33 Exam(s ) MG MAMMO SCREEN ING EXAM: MG MAMMO SCREEN ING CLINIC AL HISTOR Y: screen ing,z1 2.31 TECHNI QUE: Bilate ral full field digita l CC and MLO mammog raphic images were obtain ed with 3D tomosy nthesi s and utiliz ing comput er aided detect ion (CAD). COMPAR ANAY: This is a baseli ne examin ation. FINDIN GS: Masses /Archi tectur al Distor tion: No suspic ious masses are seen. There are no areas of sara ectura l distor tion. There is a well-c ircums cribed nodule in the upper outer quadra nt of the left breast with an eccent zen notch consis tent with a intrap arench ymal lymph node. Microc alcifi cation s: No suspic ious pleomo rphic- type are seen. Skin Thicke oleg/N ipple Retrac tion: None. IMPRES DENISE: 1. No eviden ce for malign leland is seen at this time. 2. Unless there is more urgent need, screen ing mammog marta is recomm ended, as per [employer] y guidel trip. BI-RAD S Catego ry 1 - Negati ve Breast Densit y - Catego ry C - Hetero geneou sly dense Breast densit y catego ry C or D implie s that the patien t has dense breast tissue . Dense breast tissue is very common and is not abnorm al but dense breast tissue can make it harder to find cancer on a mammog lanie. Also, dense breast tissue may increa se their breast cancer risk. This inform ation about the result of the mammog lnaie report was provid ed to the patien t to raise their awaren ess. Use this report when you speak with the patien t about their risks for breast cancer , which includ es their family histor y. At that time, you may recomm end for more screen ing tests (Ultra sound or MRI) as they might be useful based on their risk. A negati ve radiog raphic report should not delay biopsy if a domina nt or clinic ally suspic ious mass is presen t. Up to ten percen t of cancer s are not identi fied on mammog marta. A negati ve report may reinfo rce clinic al impres denise. Adenos is and dense breast s may obscur e an underl payton neopla sm. False positi ve report s averag e 6 to 10%. Patien t will receiv e a letter notify ing them of these result s. Ordere d By: Alma Egan sa, M.D. CC: ------ ------ ------ ------ ------ ------ ------ ------ ------ ------ ------ ------ - Dictat ed By: Galen Dunbar M.D. [id number] Transc ribed By: Galen Dunbar 842 This is privil eged, confid ential inform ation intend ed only for the provid er named. Any use or distri bution by any person other than this provid er is strict ly prohib ited. If you receiv e this report in error, please notify us immedyuriy saucedo at and return the origin al report to us at the addres s above. Thank- you. adin [facility] [address] [facility] , [place], [address] 12/28/2023 09:14:44 Result Notes None recorded. Problems Name Status Onset Date Resolution Date Notes Provider Name and Address Organization Details Recorded Time Migraine Active 2007 Problem Code: G43.909; Problem Code Type: ICD-10; Not Available [facility] 3 05:04:04 Gastroesophagea l reflux disease without esophagitis Active 2014 Problem Code: K21.9; Problem Code Type: ICD-10; Not Available [facility] 3 05:04:04 Acute upper respiratory infection Completed 202010/03/2020 08/17/2020 - Comments only - Viktor Alvarez MD - Flu negative, COVID swab pending, assume COVID until test negative. Discussed supportive care. RTC if more SOB, not tolerating PO. Benzonoate prn cough. Problem Code: J06.9; Problem Code Type: ICD-10; Not Available [facility] 3 05:04:04 Generalized anxiety disorder Active 202104/23/2022 - Comments only - Timmy Robbins RPA - Doing well on sertraline. Problem Code: F41.1; Problem Code Type: ICD-10; [address], [place], [address] , [place] [facility]. 4 17:14:58 Nasal congestion Completed 201908/17/2020 Problem Code: R09.81; Problem Code Type: ICD-10; Not Available [facility] 3 05:04:13 Acute sinusitis Completed 201808/17/2020 Problem Code: J01.90; Problem Code Type: ICD-10; Not Available [facility] 3 05:04:14 Arthralgia of the ankle and/or foot Completed 201708/17/2020 Problem Code: M25.572; Problem Code Type: ICD-10; Not Available [facility] 3 05:04:16 Disorder of nasal sinus Completed 201612/09/2017 Not Available [facility] 3 05:04:16 Pain in thoracic spine Completed 201508/17/2020 Problem Code: M54.9; Problem Code Type: ICD-10; Not Available [facility] 3 05:04:17 Temporomandibul ar joint disorder Completed 201808/17/2020 Problem Code: M26.69; Problem Code Type: ICD-10; Not Available [facility] 3 05:04:21 Shoulder joint pain Completed 201308/17/2020 Problem Code: 719.41; Problem Code Type: ICD-9; Not Available [facility] 3 05:04:22 Acute pharyngitis Completed 201908/17/2020 Problem Code: J02.9; Problem Code Type: ICD-10; Not Available [facility] 3 05:04:25 Allergic rhinitis Completed 201108/17/2020 Not Available [facility] 3 05:04:25 Acute upper respiratory infection Completed 201612/09/2017 Problem Code: J06.9; Problem Code Type: ICD-10; Not Available [facility] 3 05:04:27 Adult health examination Active 2022 Problem Code: Z00.00; Problem Code Type: ICD-10; Not Available [facility] 4 05:35:42 Essential hypertension Active [address], [place], [address] , [facility]. 4 08:27:58 Paronychia of finger Active [address], [place], [address] , [facility] 4 10:57:24 Cough Active [address], [place], [address] , [facility] 4 10:57:48 Cellulitis of face Active [address], [facility] [address] , [facility] 4 10:58:00 Problem Notes None recorded. Procedures Surgical History None recorded. Imaging Results Imaging Date Name Status LastModified by [facility]iz [facility] Details LastModified Time 12/28/2023 mammography imaging report completed [address] , [place], [address] 12/28/2023 09:14:44 Procedure Notes None recorded. Medical Equipment None Reported. Allergies Allergen ID Allergen Name Allergen Category Reaction Reaction Severity Criticality Documentation Date Start Date Code Code System Note Provider Name and Address Organization Details Recorded Time lactose Not available Not available Not available Not available 05/15/20232013 6211 RxNorm Aller gyNam e: 'LACT OSE INTOL ERANC E'; Not Available [facility] 3 16:11:41 Medications Name Sig Start Date [...] (28) 0.25 mg-35 mcg tablet 12/11 completed [facility] Not Available Not Available Not Available Albuterol [...] relief. 12/11 completed Initiate d by Dr. Molina en Not Available Not Available Not Available Vitamin [...] Available Not Available Vitals Date Recorded Body weight Body temperature Respiratory rate Heart rate Systolic blood pressure Diastolic blood pressure Provider Name and Address Organization Details Last Updated DateTime 3 04271.9 8 g 97.9 [degF] 16 /min 96 /min 148 mm[Hg] 100 mm[Hg] TERRELL KATHLEEN RN [facility] 3 13:46:31 Date Recorded Body height Body mass index (BMI) Body weight Body temperature Respiratory rate Heart rate Systolic blood pressure Diastolic blood pressure Provider Name and Address Organization Details Last Updated DateTime 4 161.9 cm 31.5 kg/m2 76269.0 9 g 97.9 [degF] 16 /min 80 /min 140 mm[Hg] 108 mm[Hg] TERRELL KATHLEEN RN [facility] 4 08:08:35 Date Recorded Body height Body mass index (BMI) Body weight Body temperature Oxygen saturation Oxygen saturation in Arterial blood by Pulse oximetry Heart rate Systolic blood pressure Diastolic blood pressure Provider Name and Address Organization Details Last Updated DateTime 4 161.9 cm 30.3 kg/m2 46453.3 6 g 98.1 [degF] 99 % 99 % 85 /min 130 mm[Hg] 100 mm[Hg] GALE SHAFER MA [facility] 4 07:30:07 Date Recorded Body height Body mass index (BMI) Body weight Heart rate Oxygen saturation Oxygen saturation in Arterial blood by Pulse oximetry Body temperature Systolic blood pressure Diastolic blood pressure Provider Name and Address Organization Details Last Updated DateTime 4 161.9 cm 30.5 kg/m2 54609.0 6 g 94 /min 98 % 98 % 97.9 [degF] 143 mm[Hg] 98 mm[Hg] Maci Ge MA [facility] 4 07:40:55 Date Recorded Body height Body mass index (BMI) Body weight Body temperature Oxygen saturation Oxygen saturation in Arterial blood by Pulse oximetry Heart rate Respiratory rate Systolic blood pressure Diastolic blood pressure Provider Name and Address Organization Details Last Updated DateTime 4 161.9 cm 30.5 kg/m2 27728.2 6 g 99.2 [degF] 99 % 99 % 83 /min 17 /min 144 mm[Hg] 112 mm[Hg] Seema Watkins MA [facility] 4 10:01:46 Social History Question Answer Notes LastModified by Organizat ion Details LastModified Time Tobacco Smoking Status Never Smoker TERRELL KATHLEEN RN null, [facility] 06/23/2023 13:47:50 What Was The Date Of Your Most Recent Tobacco Screening? 02/26/2024 [email or web address] Information not available 02/26/2024 Has Tobacco Cessation Counseling Been Provided? Yes [email or web address] Information not available 02/26/2024 On What Date Was Tobacco Cessation Counseling Provided? 02/26/2024 [email or web address] Information not available 02/26/2024 Do You Or Have You Ever Used Any Other Forms Of Tobacco Or Nicotine? No [email or web address] Information not available 06/23/2023 Sex: Female Functional Status None recorded. Mental Status None recorded. Family History Relationship Description Onset Age of this Age Resolved Age Notes Mother Family history of Depression Notes:*Problem: Mother: Raymond tijerina, 1955, depression, Tourette's Syndrome, hiatal hernia, HTN Father: Alive, 1960, DVTs Sisters: one, younger, depression Brothers: none Children: none Family History of: Breast cancer: Mother - diagnosed 2012, age 56. MGM, PGM Prostate cancer: PGF Heart Disease: PGM s/p [place], MGF s/p pacer placement Other: no Medical History No medical history recorded. Gynecological HistoryNo gynecological history recorded. Obstetrics History GPAL:G 0 P 0 0 0 0 Immunizations Vaccine Type Date Status Provider Name and Address Organization Details Recorded Time Tdap 02/18/2019 completed Not Available [facility] 06:27:18 Influenza, split virus, trivalent, PF 03/30/2015 completed Not Available [facility] 05/15/2023 06:27:18 Influenza, split virus, quadrivalent, PF 04/23/2018 completed Not Available [facility] 05/15/2023 06:27:18 Influenza, split virus, quadrivalent, PF 04/23/2022 completed Not Available [facility] 05/15/2023 06:27:18 Influenza, MDCK, quadrivalent, PF 05/01/2017 completed Not Available [facility] 05/15/2023 06:27:18 COVID-19, mRNA, LNP-S, PF, 30 mcg/0.3 mL dose 09/09/2020 completed Not Available [facility] 05/15/2023 06:27:18 COVID-19, mRNA, LNP-S, PF, 30 mcg/0.3 mL dose 09/24/2020 completed Not Available [facility] 05/15/2023 06:27:18 SARS-COV-2 (COVID-19) vaccine, UNSPECIFIED 05/06/2021 completed Not Available [facility] 05/15/2023 06:27:19 influenza, unspecified formulation 03/23/2019 completed Not Available [facility] 05/15/2023 06:27:19 Past Encounters Encounter ID Performer Location Encounter Start Date Encounter Closed Date Diagnosis/Indication Diagnosis SNOMED-CT Code [id number] TIMMY ROBBINS PA-C [facility] [address] [place] [address] 06/23/2023 13:34:16 06/23/2023 14:13:09 Essential hypertension 41531584 Generalize d anxiety disorder 48486135 [id number] TIMMY ROBBINS PA-C [facility] [address] [place] [address] 09/09/2023 07:57:32 09/09/2023 08:23:35 Essential hypertension 37042284 Generalize d anxiety disorder 41529645 [id number] TIMMY ROBBINS PA-C [facility] [address] [place] [address] 11/20/2023 07:20:08 11/20/2023 07:42:44 Essential hypertension 96852838 [id number] TIMMY ROBBINS PA-C [facility] [address] [place] [address] 02/12/2024 07:33:00 02/12/2024 07:57:16 Essential hypertension 79908625 [id number] GLO IVY PA-C [address] [place] [address] 02/26/2024 09:31:04 02/26/2024 11:04:29 Paronychia of finger 161532641 Cough 85527542 Cellulitis of face 2001 Health Concerns Section Related Observation LastModified by Organization Detai ls LastModified Time None Recorded Concern Status LastModified by Organization Details LastModified Time None Recorded Advance Directives Directive None Recorded Payers Encounter Date Sequence Insurance Name Policy Number Policy Anderson Covered Member ID Anderson Member ID Guarantor Name 06/23/2023 1 [place] [employer] [place] Keysha Dhaliwal [id number] Keysha Dhaliwal 09/09/2023 1 [place] [facility] [id number] Keysha Dhaliwal [id number] Keysha Dhaliwal 11/20/2023 1 [place] [facility] [id number] Keysha Dhaliwal [id number] Keysha Dhaliwal 02/12/2024 1 [place] [facility] [id number] Keysha Dhaliwal [id number] Keysha Dhaliwal 02/26/2024 1 [place] [facility] [id number] Keysha Dhaliwal [id number] Keysha Dhaliwal Notes Date Note Type Note Provider Name and Address Organization Details Recorded Time 06/23/2023 text/html HPI Notes: follow-up for hypertension, anxiety. she feels that she has an aspect of ADHD. She has noted this more now that her anxiety is improved. She used to think that her inner motor was driven by her anxiety. Now that her anxiety is better she still has difficulty relaxing. She feels the need to always be involved in an activity with difficulty maintaining focus on any single activity. In a conversation with her father, her father has very similar traits. Associated Difficulty falling asleep at night. has a hard time relaxing. [address], [place], [address], [facility]. 06/23/2023 15:28:05 09/09/2023 text/html HPI Notes: [facility] is here for followup of hypertension, anxiety, and adhd symptoms with difficulty initiating sleep. She doesn't feel guanfacine has had a significant impact. Sertraline continues to work well on her anxiety. Has been dealing with a mild cold. [address], [place], [address], [facility]. 09/09/2023 08:28:14 11/20/2023 text/html HPI Notes: Here for bp followup. Her bp numbers have been better but still a bit elevated at recent guard chief appointments. Tolerating hctz fine. Feeling good. No other concerns today. [address], [place], [address], [facility]. 11/20/2023 07:44:11 02/12/2024 text/html HPI Notes: [facility] is here for follow-up of hypertension. She has been checking her blood pressure numbers at home and they are generally elevated. Averaging about 140/90. Feeling a bit congested today. No fevers or chills. Her daughter was just diagnosed with an ear infection. TIMMY ROBBINS PA-C [address], [place], [address], [facility]. 02/12/2024 11:46:00 02/26/2024 text/html HPI Notes: Kevin xiao is a 33-year-old female who presents with [...] and had no concerns at that time. GLO IVY PA-C [address], [place], [address], [facility]. 02/26/2024 11:46:02 OBGyn Episode No OBEpisode recorded.
--- OUTSIDE RECORDS SUMMARY | 2024-02-26 14:49 | XMS_ITS | Encounter Summary ---
Author Organization [facility] Address [address] [place] [address] Care Team Providers Care Embroidery Designer Name Role Phone Unknown, Provider Primary Care Provider [phone] Encounter Details Date Type Department Care Team (Late st Contact Info) Description 06/18/2012 Results Only [facility] - [facility] ([facility] [address] [place] [address], [place] [address] Yadira Schmitt, [facility] [address] [place] [address] [place] [phone] Social History Tobacco Use Types Packs/Day Years Used Date Smoking Tobacco: Never Assessed Sex and Gender Information Value Date Recorded Sex Assigned at Not on file Gender Identity Not on file Sexual Orientation Not on file documented as of this encounter Plan of Treatment Not on file documented as of this encounter Procedures Procedure Name Priority Date/Time Associated Diagnosis Comments PAP TEST- RESULT ONLY Routine 06/18/2012 0:00 EST documented in this encounter Results * PAP TEST- RESULT ONLY (06/18/2012 0:00 EST) Pathology Report: CYTOPATHOLOGY REPORT Reports generated via electronic interface contain original data; however they are lacking the format of the original report. Caution should be taken when reading/interpreti ng unformatted reports. Name: ? KEYSHA GARCIA ? Accession #: ? [id number] : ? 1990 (Age: 22) ??F ?Collect Date: ? 06/18/2012 Location: ? [facility] ? Receive Date: ? 06/21/2012 Provider: ?YADIRA SCHMITT ASSURANCE SPECIALIST Copy to: ?HARDEEP WEBER MD ? Specimen/Source: ?Pap Test, Cervix/Endocervix, ThinPrep Imaging System with manual evaluation Last Menstrual Period: ? Hormonal/Contracep tive Status: ? Yes: Mirena ? SPECIMEN ADEQUACY ? Satisfactory for Evaluation - transformation zone component present GENERAL CATEGORIZATION ? Negative for Intraepithelial Lesion or Malignancy ? Document reviewed and electronically signed by: ? Kenisha Kelsey, LIVAN(ASCP)(IAC) ? Report Date: ??06/25/2012 12:06 End of Report [facility] 06/18/2012 06/21/2012 Yadira Schmitt ASSURANCE SPECIALIST PATHOLOGY ORDERABLES [facility] [address] [place] [address] documented in this encounter Visit Diagnoses Not on filedocumented in this encounter Care Teams Embroidery Designer Relationship Specialty Start Date End Date Unknown, Provider, PCP - General 09/19/09 06/27/12 documented as of this encounter
--- OUTSIDE RECORDS SUMMARY | 2024-02-26 14:49 | XMS_ITS | Encounter Summary ---
Author Organization [facility] Address [address] [place] [address] Care Team Providers Care Clinical Social Work Aide Name Role Phone Robert Santana APRN Primary Care Provider [phone] Encounter Details Date Type Department Care Team (Late st Contact Info) Description 10/22/2017 Results Only [facility]- [facility] [phone] Yadira Schmitt, [address] [address] Social History Tobacco Use Types Packs/Day Years [...] Diagnosis Comments PAP TEST- RESULT ONLY Routine 10/22/2017 0:00 EDT documented in this encounter Results * PAP TEST- RESULT ONLY (10/22/2017 0:00 EDT) Pathology Report: CYTOPATHOLOGY REPORT Reports generated via electronic interface contain original data; however they are lacking the format of the original report. Caution should be taken when reading/interpreti ng unformatted reports. Name: ? KEYSHA DHALIWAL ? Accession #: ? [id number] : ? 1990 (Age: 27) ??F ?Collect Date: ? 10/22/2017 Location: ? [facility] ? Receive Date: ? 10/23/2017 Provider: ?YADIRA SCHMITT GENERAL SCRAP WORKER Copy to: ?CINDY CHAPAMN MD ? Specimen/Source: ?Pap Test, Cervix, ThinPrep Imaging System with manual evaluation Last Menstrual Period: ? Hormonal/Contracep tive Status: ? Yes: MIRENA ? SPECIMEN ADEQUACY ? Satisfactory for Evaluation - transformation zone component present GENERAL CATEGORIZATION ? Negative for Intraepithelial Lesion or Malignancy ? Document reviewed and electronically signed by: ? LIVAN Butler(ASCP) ? Report Date: ??10/30/2017 15:17 End of Report [facility] 10/22/2017 10/23/2017 Yadira Schmitt GENERAL SCRAP WORKER PATHOLOGY ORDERABLES Performing Organization Address City/State/[facility] Co de Phone Number [facility] [address] [place] [address] documented in this encounter Visit Diagnoses Not on filedocumented in this encounter Care Teams Clinical Social Work Aide Relationship Specialty Start Date End Date Robert Santana APRN [address] [place] [phone] PCP - General 06/28/12 08/20/20 documented as of this encounter
--- OUTSIDE RECORDS SUMMARY | 2024-02-26 14:49 | XMS_ITS | Encounter Summary ---
Author Organization [facility] Address [address] [place] [address] Care Team Providers Care Moving Consultant Name Role Phone Robert Santana ENERGY DERIVATIVES TRADER Primary Care Provider [phone] Encounter Details Date Type Department Care Team ([facility] st Contact Info) Description 06/22/2018 Results Only [facility]- [facility] [phone] Catihe Garrido MD [address] [facility] [address] [place] [id number] Social History Tobacco Use Types Packs/Day Years Used Date Smoking Tobacco: Never Assessed Sex and Gender Information Value Date Recorded Sex Assigned at Not on file Gender Identity Not on file Sexual Orientation Not on file documented as of this encounter Plan of Treatment Not on file documented as of this encounter Procedures Procedure Name Priority Date/Time Associated Diagnosis Comments SURGICAL PATHOLOGY Routine 06/22/2018 15 :32 EST documented in this encounter Results * SURGICAL PATHOLOGY (06/22/2018 15:32 EST) Pathology Report: SURGICAL PATHOLOGY REPORT Reports generated via electronic interface contain original data; however they are lacking the format of the original report. Caution should be taken when reading/interpreting unformatted reports. Name: ? KEYSHA DHALIWAL ? Accession #: ? [id number] ? : ? 1990 (Age: 28) ??F ? Collect Date: ? 06/22/2018 ? Location: ? [facility] ? Receive Date: ? 06/22/2018 ? Provider: CATHIE GARRIDO MD Copy to: CINDY CHAPMAN MD ? Final Pathologic Diagnosis: ENDOMETRIUM, CURETTAGE: - Weakly proliferative endometrium with focal breakdown. - Fragment of myometrial tissue with features suggestive of submucosal leiomyoma. See comment. - Benign endocervical tissue with acute and chronic cervicitis and reactive squamous metaplasia. Comment: ? Small Battery Plate Assembler slides of this case were reviewed at intradepartmental consultation conference. ?? Document reviewed and electronically signed by: DESIRE BAUGH MD Report ??Date: 06/24/2018 16:12 By the signature above, the attending physician certifies that he/she has personally conducted a gross and/or microscopic examination of the described specimens and rendered or confirmed the above diagnosis. Specimen(s) Received: [facility] Clinical History: Dysfunctional uterine bleeding Gross Description: ? Received in formalin labelled with proper patient identification (initials M, H) and EMC are multiple fabian rubbery tissue fragments admixed with approximately 60% clotted blood and possible mucus, altogether aggregating to approximately 3.0 x 3.0 x 1.0 cm. Entirely submitted in 1-4. DAVID Wakefield (ASCP) 06/22/2018 4:05 PM End of Report [facility] 06/22/2018 15:3 2 EST 06/22/2018 15:32 EST Cathie Garrido MD PATHOLOGY ORDERABLES [facility] [address] [place] [address] documented in this encounter Visit Diagnoses Not on filedocumented in this encounter Care Teams Moving Consultant Relationship Specialty Start Date End Date Robert Santana APRN [address] [place] [phone] PCP - General 06/28/12 08/20/20 documented as of this encounter
--- OUTSIDE RECORDS SUMMARY | 2024-02-26 14:49 | XMS_ITS | Continuity of Care Document ---
Author Organization [place] [facility] Address [address] [place] [address] Care Team Providers Care Intellectual Property Manager Name Role Phone TIMMY ROBBINS Primary Care Provider Assessment No assessment recorded. [...] right ac. pt tolerated well. 2023 024 [facility] (Registration ), [address] [place] [address] [place], [address], 02/19/2024 08:33:37 Referral None recorded. Procedures None recorded. Surgeries None recorded. Imaging None recorded. Medication Orders lisinopri l 10 mg-hydroc hlorothia zide 12.5 mg tablet 2023 024 [facility], [address] [facility], [place], [address], 02/12/2024 11:45:59 Patient TargetsNo targets recorded. Patient Instructions Encounter Date Encounter Id Patient Instructions Last Modified By Organization Details Last Modified Time 02/12/2024 [id number] Keysha guan start lisinopril/hctz in place of just hydrochlorothiazi de. Continue to check your blood pressures. I will call when I have results of blood work. adin Not available 02/12/2024 07:54:57 Reason for Referral None Reported. Problems Name Status Onset Date Resolution Date Notes Provider Name and Address Organization Details Recorded Time Migraine Active 2007 Problem Code: G43.909; Problem Code Type: ICD-10; Not Available [facility] 3 05:04:04 Gastroesophagea l reflux disease without esophagitis Active 2014 Problem Code: K21.9; Problem Code Type: ICD-10; Not Available [facility] 3 05:04:04 Acute upper respiratory infection Completed 202010/03/2020 08/17/2020 - Comments only - Viktor Alvarez MD - Flu negative, COVID swab pending, assume COVID until test negative. Discussed supportive care. RTC if more SOB, not tolerating PO. Benzonoate prn cough. Problem Code: J06.9; Problem Code Type: ICD-10; Not Available [facility] 3 05:04:04 Generalized anxiety disorder Active 202104/23/2022 - Comments only - Timmy Robbins RPA - Doing well on sertraline. Problem Code: F41.1; Problem Code Type: ICD-10; TIMMY ROBBINS PA-C [address], [place], [address] , [facility]. 4 17:14:58 Nasal congestion Completed 201908/17/2020 Problem Code: R09.81; Problem Code Type: ICD-10; Not Available [facility] 3 05:04:13 Acute sinusitis Completed 201808/17/2020 Problem Code: J01.90; Problem Code Type: ICD-10; Not Available [facility] 3 05:04:14 Arthralgia of the ankle and/or foot Completed 201708/17/2020 Problem Code: M25.572; Problem Code Type: ICD-10; Not Available [facility] 3 05:04:16 Disorder of nasal sinus Completed 201612/09/2017 Not Available [facility] 3 05:04:16 Pain in thoracic spine Completed 201508/17/2020 Problem Code: M54.9; Problem Code Type: ICD-10; Not Available [facility] 3 05:04:17 Temporomandibul ar joint disorder Completed 201808/17/2020 Problem Code: M26.69; Problem Code Type: ICD-10; Not Available [facility] 3 05:04:21 Shoulder joint pain Completed 201308/17/2020 Problem Code: 719.41; Problem Code Type: ICD-9; Not Available [facility] 3 05:04:22 Acute pharyngitis Completed 201908/17/2020 Problem Code: J02.9; Problem Code Type: ICD-10; Not Available [facility] 3 05:04:25 Allergic rhinitis Completed 201108/17/2020 Not Available [facility] 3 05:04:25 Acute upper respiratory infection Completed 201612/09/2017 Problem Code: J06.9; Problem Code Type: ICD-10; Not Available [facility] 3 05:04:27 Adult health examination Active 2022 Problem Code: Z00.00; Problem Code Type: ICD-10; Not Available [facility] 4 05:35:42 Essential hypertension Active [address], [place], [address] , [facility]. 4 08:27:58 Paronychia of finger Active [address], [place], [address] , [facility]. 4 10:57:24 Cough Active [address], [place], [address] , [facility]. 4 10:57:48 Cellulitis of face Active [address], [place], [address] , [facility]. 4 10:58:00 Problem Notes None recorded. Medical [...] 24hrs 04/[address] d by Dr. Molina en. Failed Imitrex. Not Available Not Available Not [...] Updated DateTime 4 161.9 cm 30.5 kg/m2 86130.0 6 g 94 /min 98 % 98 % 97.9 [degF] 143 mm[Hg] 98 mm[Hg] Maci Ge MA [facility] 4 07:40:55 Social History Question Answer Notes LastModified by Organizat ion Details LastModified Time Tobacco Smoking Status Never Smoker TERRELL KATHLEEN RN [facility], [facility] 06/23/2023 13:47:50 What Was The Date Of Your Most Recent Tobacco Screening? 02/26/2024 [email or web address] Information not available 02/26/2024 Has Tobacco Cessation Counseling Been Provided? Yes [email or web address] Information not available 02/26/2024 On What Date Was Tobacco Cessation Counseling Provided? 02/26/2024 [email or web address] Information not available 02/26/2024 Do You Or Have You Ever Used Any Other Forms Of Tobacco Or Nicotine? No [email or web address] Information not available 06/23/2023 Sex: Female Functional Status None recorded. Mental Status None recorded. Family History Relationship Description Onset Age of this Age Resolved Age Notes Mother Family history of Depression Notes:*Problem: Mother: Raymond tijerina, 195, depression, Tourette's Syndrome, hiatal hernia, HTN Father: Alive, 1960, DVTs Sisters: one, younger, depression Brothers: none Children: none Family History of: Breast cancer: Mother - diagnosed 2012, age 56. MGM, PGM Prostate cancer: PGF Heart Disease: PGM s/p DC, MGF s/p pacer placement Other: no Medical History No medical history recorded. Gynecological HistoryNo gynecological history recorded. Obstetrics History GPAL:G 0 P 0 0 0 0 Immunizations Vaccine Type Date Status Provider Name and Address Organization Details Recorded Time Tdap 02/18/2019 completed Not Available [facility] 06:27:18 Influenza, split virus, trivalent, PF 03/30/2015 completed Not Available [facility] 05/15/2023 06:27:18 Influenza, split virus, quadrivalent, PF 04/23/2018 completed Not Available [facility] 05/15/2023 06:27:18 Influenza, split virus, quadrivalent, PF 04/23/2022 completed Not Available [facility] 05/15/2023 06:27:18 Influenza, MDCK, quadrivalent, PF 05/01/2017 completed Not Available [facility] 05/15/2023 06:27:18 COVID-19, mRNA, LNP-S, PF, 30 mcg/0.3 mL dose 09/09/2020 completed Not Available [facility] 05/15/2023 06:27:18 COVID-19, mRNA, LNP-S, PF, 30 mcg/0.3 mL dose 09/24/2020 completed Not Available [facility] 05/15/2023 06:27:18 SARS-COV-2 (COVID-19) vaccine, UNSPECIFIED 05/06/2021 completed Not Available [facility] 05/15/2023 06:27:19 influenza, unspecified formulation 03/23/2019 completed Not Available [facility] 05/15/2023 06:27:19 Past Encounters Encounter ID Performer Location Encounter Start Date Encounter Closed Date Diagnosis/Indication Diagnosis SNOMED-CT Code [id number] TIMMY ROBBINS PA-C [place] [address] [place] [address] 02/12/2024 07:33:00 02/12/2024 07:57:16 Essential hypertension [id number] Health Concerns Section Related Observation LastModified by Organization Detai ls LastModified Time None Recorded Concern Status LastModified by Organization Details LastModified Time None Recorded Payers Encounter Date Sequence Insurance Name Policy Number Policy Andesron Covered Member ID Anderson Member ID Guarantor Name 02/12/2024 1 [facility]: [facility] [id number] Keysha Dhaliwal [id number] Keysha Dhaliwal Notes Date Note Type Note Provider Name and Address Organization Details Recorded Time 02/12/2024 text/html HPI Notes: Keysha is here for follow-up of hypertension. She has been checking her blood pressure numbers at home and they are generally elevated. Averaging about 140/90. Feeling a bit congested today. No fevers or chills. Her daughter was just diagnosed with an ear infection. TIMMY ROBBINS PA-C [address], [place], [address], [facility]. 02/12/2024 11:46:00 OBGyn Episode No OBEpisode recorded.
--- OUTSIDE RECORDS SUMMARY | 2024-02-26 14:49 | XMS_ITS | Encounter Summary ---
Author Organization [facility] Address [address] [place] [address] Care Team Providers Care State Highway Police Officer Name Role Phone Unknown, Provider Primary Care Provider Encounter Details Date Type Department Care Team (Late st Contact Info) Description 06/24/2012 Results Only [facility]- [facility] [[email or web address] [phone] Shashi Aguiar, [address] [place] [address] Social History Tobacco Use Types Packs/Day Years Used Date Smoking Tobacco: Never Assessed Sex and Gender Information Value Date Recorded Sex Assigned at Not on file Gender Identity Not on file Sexual Orientation Not on file documented as of this encounter Plan of Treatment Not on file documented as of this encounter Procedures Procedure Name Priority Date/Time Associated Diagnosis Comments SURGICAL PATHOLOGY Routine 06/24/2012 16 :02 EST documented in this encounter Results * SURGICAL PATHOLOGY (06/24/2012 16:02 EST) Pathology Report: SURGICAL PATHOLOGY REPORT Reports generated via electronic interface contain original data; however they are lacking the format of the original report. Caution should be taken when reading/interpreti ng unformatted reports. Name: ? FINAKEYSHA REY ? Accession #: ? [id number] ? : ? 1990 (Age: 22) ??F ? Collect Date: ? 06/24/2012 ? Location: ? [facility] ? Receive Date: ? 06/24/2012 ? Provider: SHASHI AGUIAR DO Copy to: SHADI CUELLAR CARPENTER'S HELPER ? Final Pathologic Diagnosis: A. ?Tonsil, left, tonsillectomy: 1. ?Tonsillar tissue with reactive lymphoid follicular hyperplasia. B. ?Tonsil, right, tonsillectomy: 1. ?Tonsillar tissue with reactive lymphoid follicular hyperplasia. Document reviewed and electronically signed by: Ricki Salter MD Report ??Date: 06/30/2012 15:39 By the signature above, the attending physician certifies that he/she has personally conducted a gross and/or microscopic examination of the described specimens and rendered or confirmed the above diagnosis. Specimen(s) Received: A. ?Left tonsil B. ? Right tonsil Clinical History: ? Clinical diagnosis code: ??474.0, 784.91, 472.0 Gross Description: ? Received in formalin labelled Keysha Kohler and left tonsil is a fabian-pink, ovoid, unoriented, 2.3 x 1.6 x 0.8 cm soft tissue surfaced by a fabian, smooth to wrinkled mucosa. ??The cut surfaces are fabian-pink with a crypt-like architecture. ??No discrete nodules are present. ??A assisted sales representative section is submitted as (A). Received in formalin labelled Keysha Kohler and right tonsil is a fabian-pink, ovoid, unoriented soft tissue measuring 2.5 x 1.8 x 1.2 cm and is surfaced by a fabian, smooth to wrinkled mucosa. ??The cut surfaces are fabian-pink with a crypt-like architecture. ??No discrete nodules are present. ??A assisted sales representative sections is submitted as (B). ??(Lisha Pandya)/[facility] End of Report [facility] 06/24/2012 16:0 2 EST 06/24/2012 16:02 EST Shashi Aguiar DO PATHOLOGY ORDER [facility] [address] [place] [address] documented in this encounter Visit Diagnoses Not on filedocumented in this encounter Care Teams State Highway Police Officer Relationship Specialty Start Date End Date Unknown, Provider, PCP - General 09/19/09 06/27/12 documented as of this encounter
--- OUTSIDE RECORDS SUMMARY | 2024-02-26 14:49 | XMS_ITS | Encounter Summary ---
Author Organization [facility] Address [address] [place] [address] Care Team Providers Care Shingle Trimmer Name Role Phone Robert Santana APRN Primary Care Provider [phone] Encounter Details Date Type Department Care Team (Late st Contact Info) Description 10/16/2015 Results Only [facility] [phone] Cindy Moore, [address] [address] Social History Tobacco Use Types Packs/Day Years [...] Diagnosis Comments PAP TEST- RESULT ONLY Routine 10/16/2015 0:00 EDT documented in this encounter Results * PAP TEST- RESULT ONLY (10/16/2015 0:00 EDT) Pathology Report: CYTOPATHOLOGY REPORT Reports generated via electronic interface contain original data; however they are lacking the format of the original report. Caution should be taken when reading/interpreti ng unformatted reports. Name: ? KEYSHA DHALIWAL ? Accession #: ? [id number] : ? 1990 (Age: 25) ??F ?Collect Date: ? 10/16/2015 Location: ? [facility] ? Receive Date: ? 10/17/2015 Provider: ?CINDY MOORE CNM Copy to: ?CINDY CHAPMAN MD ? Specimen/Source: ?Pap Test, Cervix, ThinPrep Imaging System with manual evaluation Last Menstrual Period: ? Menstrual/Pregnanc y Status: ? SPECIMEN ADEQUACY ? Satisfactory for Evaluation - transformation zone component present GENERAL CATEGORIZATION ? Negative for Intraepithelial Lesion or Malignancy ? Document reviewed and electronically signed by: ? LIVAN Damon(ASCP) ? Report Date: ??10/25/2015 10:16 End of Report [facility] 10/16/2015 10/17/2015 Cindy Moore [facility] ENOCH RAMOS Performing Organization Address City/State/[facility] Co de Phone Number [facility] [address] [place] [address] documented in this encounter Visit Diagnoses Not on filedocumented in this encounter Care Teams Shingle Trimmer Relationship Specialty Start Date End Date Robert Santana APRN [address] [place] [phone] PCP - General 06/28/12 08/20/20 documented as of this encounter
--- OUTSIDE RECORDS SUMMARY | 2024-02-26 14:49 | XMS_ITS | Encounter Summary ---
Author Organization [facility] Address [address] [place] [address] Care Team Providers Care Supervisor [employer] [place] Name Role Phone Unknown, Provider Primary Care Provider [phone] Encounter Details Date Type Department Care Team (Late st Contact Info) Description 09/18/2009 Results Only [facility] Laboratory Services - [facility] ([facility]) [address] [place] [place], [place] [id number] Yadira Schmitt, [facility] [address] [place] [address] [place] [id number] Social History Tobacco Use Types Packs/Day Years Used Date Smoking Tobacco: Never Assessed Sex and Gender Information Value Date Recorded Sex Assigned at Not on file Gender Identity Not on file Sexual Orientation Not on file documented as of this encounter Plan of Treatment Not on file documented as of this encounter Procedures Procedure Name Priority Date/Time Associated Diagnosis Comments CYTOPATHOLOGY Routine 09/18/2009 0:00 EDT documented in this encounter Results * CYTOPATHOLOGY (09/18/2009 0:00 EDT) Pathology Report: CYTOPATHOLOGY REPORT ? Reports generated via electronic interface contain original data; ? however they are lacking the format of the original report. ? Caution should be taken when reading/interpreti ng unformatted reports. ? Name: ? KEYSHA GARCIA ? Accession #: ? [id number] ? : ? 1990 (Age: 19) ??F ?Collect Date: ? 09/18/2009 ? Location: ? [facility] ? Receive Date: ? 09/19/2009 ? Provider: ?YADIRA JASON CAN CLEANER ? Copy to: ? Specimen/Source: ?Pap Test, Cervix/Endocervix, ThinPrep Imaging System ? with manual evaluation ? Last Menstrual Period: ? 3/10/10 ? Hormonal/Contracep tive Status: ? Oral contraceptives ? Other: ? Additional clinical information: 1st pap ? SPECIMEN ADEQUACY ? Satisfactory for Evaluation ? - transformation zone component present ? GENERAL CATEGORIZATION ? Negative for Intraepithelial Lesion or Malignancy ? Document reviewed and electronically signed by: ? Carmen Alicia, CT(ASCP) ? Report Date: ??09/20/2009 13:25 ? End of Report ? [facility] 09/18/2009 09/19/2009 Yadira Schmitt [employer] CLEANER PATHOLOGY ORDERABLES [facility] [address] [place] [address] documented in this encounter Visit Diagnoses Not on filedocumented in this encounter Care Teams Supervisor Tile And [place]ottle Relationship Specialty Start Date End Date Unknown, Provider, PCP - General 09/19/09 06/27/12 documented as of this encounter
== END 2024-02-26 14:48 | disposition home or self-care (01) ==
LOC: LBN 14:47
PROVIDERS: PCP Physician Assistant; Visit Provider Physician Assistant Medical
DX: L03.019 Cellulitis of unspecified finger (principal)
CPT/HCPCS: 87077; 87070; 87186; 87205

== ENCOUNTER 2024-02-28 11:32 | Emergency (ER) | payer BC, SELFPAY ==
[2024-02-28 11:37] VITALS: BP 132/94; PULSE 77; RESP 15; TEMP 36.7; O2SAT 98
--- NOTE | 2024-02-28 11:58 | ED.GENADUL_ITS ---
Discharge Plan Disposition Patient Disposition: Home Condition: Stable Discharge Details Clinical Impression: Cellulitis, face Primary Care Provider: Timmy Robbins ED Provider: Sarah Martinez Home Meds and New Rx's Prescriptions: New sulfamethoxazole-trimethoprim [Bactrim DS] 800-160 mg tablet 1 tab PO BID 10 Days Qty: 20 0RF Continued cholecalciferol (vitamin D3) 1,000 unit capsule 2,000 unit PO DAILY sertraline [Zoloft] 50 mg tablet 50 mg PO DAILY Mirena 21 mcg/24 hr (8 yrs) 52 mg intrauterine device 1 device intrauterine ONCE Rx Instructions: as a single dose famotidine [Pepcid AC] 10 mg tablet 10 mg PO DAILY Patient Comments: Twice daily (20mg daily) Discharge Instructions Instructions: Cellulitis (Skin Infection), Adult ED Additional Instructions: Stop the doxycycline. begin the Bactrim which you were given here today. Give the antibiotics a good 3-5 days to kick in. Follow up with primary care provider in 3-5 days. Return to ED sooner if any worsening or concerns. Please take Tylenol or Ibuprofen with food every 4-6 hours as needed for pain and swelling. Referrals: Primary Care Provider [Outside] - 3 days Discharge Data Discharge Date/Time-TO BE ENTERED AT DEPARTURE: 02/28/24 12:13 HPI General Mode of arrival: ambulatory . Date/Time Provider Initiated Documentation: 02/28/24 11:36 . Limitations to Documentation: no limitations . Information obtained by: patient, RN notes reviewed and old records reviewed . HPI Narrative: 33-year-old female on day 4 of a right lower facial skin infection. Patient was seen in urgent care on Thursday had a swab for MRSA which results are pending at this time. She was placed on doxycycline at that time and she reports that the lesion is getting bigger and more tender. Denies any fever or chills. Originally she was having some bodyaches which has since resolved. Lesion does not appear to be fluctuant at this time, no underlying dental infection, speaking in full sentences. No drainage noted from lesion. Will change to Bactrim DS from Doxycycline. Instructed on home care, patient verbalizes understanding. Related Data Home Medications ?Medication ?Instructions ?Recorded ?Confirmed cholecalciferol (vitamin D3) 25 2,000 unit PO DAILY 11/17/18 02/28/24 mcg (1,000 unit) capsule famotidine 10 mg tablet (Pepcid AC) 10 mg PO DAILY 02/18/19 02/28/24 sertraline 50 mg tablet (Zoloft) 50 mg PO DAILY 11/18/21 02/28/24 levonorgestrel 21 mcg/24 hr (up to 1 device intrauterine ONCE 11/10/23 02/28/24 8 years) 52 mg intrauterine device (Mirena) sulfamethoxazole 800 1 tab PO BID 10 days #20 tabs 02/28/24 mg-trimethoprim 160 mg tablet (Bactrim DS) Previous Rx's ?Medication ?Instructions ?Recorded sulfamethoxazole 800 1 tab PO BID 10 days #20 tabs 02/28/24 mg-trimethoprim 160 mg tablet (Bactrim DS) Allergies Allergy/AdvReac Type Severity Reaction Status Date / Time lactose AdvReac Severe Diarrhea Verified 02/28/24 12:11 latex AdvReac Intermediate irritation Verified 02/28/24 12:11 NARCOTIC AdvReac Intermediate MAKES PT Uncoded 02/28/24 12:11 FEEL STRANGE General Stated Complaint: RashLesion BUSHRA: 4 Review of Systems All systems reviewed & are unremarkable except as noted in HPI and below ENT Ears, Nose, Mouth, and Throat: Reports as per HPI Integumentary/Breasts Skin/Breast: Reports skin swelling (Right chin) Exam [facility] Head images: 2 1. Red area of raised, indurated tender, no fluctuance palpated. No drainage noted. Face and sinus: no fluctuance and tenderness on the right malar area Mouth: oral mucosae normal, lip normal, tongue normal, salivary ducts normal and oropharynx normal Course Vital Signs Vital signs: Vital Signs Temperature 36.7 C 02/28/24 11:37 Pulse 77 02/28/24 11:37 Respiratory Rate 15 02/28/24 11:37 Blood Pressure 132/94 H 02/28/24 11:37 Pulse Oximetry 98 02/28/24 11:37 Temperature 36.7 C 02/28/24 11:37 Temperature Source Tympanic 02/28/24 11:37 Pulse 77 02/28/24 11:37 Respiratory Rate 15 02/28/24 11:37 Respiratory Effort Normal 02/28/24 11:41 Blood Pressure 132/94 H 02/28/24 11:37 Blood Pressure Position Sitting 08/25/24 11:37 Pulse Oximetry 98 02/28/24 11:37 Oxygen Delivery Method Room Air 02/28/24 11:37 Oxygen Flow Rate 0 02/28/24 11:37 Medical Decision Making 33-year-old female on day 4 of a right lower facial skin infection. Patient was seen in urgent care on Thursday had a swab for MRSA which results are pending at this time. She was placed on doxycycline at that time and she reports that the lesion is getting bigger and more tender. Denies any fever or chills. Originally she was having some bodyaches which has since resolved. Lesion does not appear to be fluctuant at this time, no underlying dental infection, speaking in full sentences. No drainage noted from lesion. Will change to Bactrim DS from Doxycycline. Instructed on home care, patient verbalizes understanding. Will change to Bactrim DS from Doxycycline. Instructed on home care, patient verbalizes understanding. This text was generated using [employer] dictation system, please disregard any oddities of phrase or misspellings. Quality:SDOH Health Related Social Needs: 2 No Data to Display PFSH All Active Problems (Updated 02/28/24 @ 12:02 by Sarah Martinez NP) Cellulitis, face (Acute) IUD surveillance (Acute 11/10/23) Mirena prevention and Menorrhagia Medical History (Updated 02/28/24 @ 12:02 by Sarah Martinez NP) Family history of breast cancer Mom @61yr, MGM in her 30s, several mat aunts. Mom had negative genetic testing PGM and several pat aunts also had it TMJ dysfunction Gastroesophageal reflux disease without esophagitis (10/24/15) Dyspareunia Migraine in college. LOC - w/u by neuro felt that it was migraine. No aura. OK'd for OCPs by [facility] neurology 06/2014. Contraceptive management 02/2010 Mirena IUD. 01/18/14 IUD out. 05/2014 Nexplanon -BTB 06/21/14 OCPs but stopped secondary to H/A. Surgical History (Updated 10/22/23 @ 14:39 by Sharon Savage MD) Hx of appendectomy Jun 2022 - [facility] - Dr. Winter Status post emergency section H/O dilation and curettage thumb surgery Tonsillectomy section (06/08/17) 2016: LTCS. Arrest of descent after 6hrs pushing. F. 9lbs. KK Apr 2019: [facility] - emergent after failed TOLAC Family History Grandmother Myocardial infarction Mother Breast cancer Neg BRCA testing Father Thyroid cancer Grandfather Diabetes Maternal Uncle Crohns disease Social History (System 01/21/19 @ 10:56 by Jana Brown) Smoking/Tobacco Use Status: Never Smoking risk assessment performed?: Yes Alcohol Intake: current Alcohol Intake frequency: a few times a month Drug use: Occasionally Substance use type: marijuana Do you feel safe at home: Yes Do you feel safe in your relationship?: Yes Female Reproductive History Menstrual control method: progestin IUCD History History 2 2 Para 2 Hx # Term Pregnancies 2 Multiple births Hx # Pregnancies Ectopic pregnancies AB induced Hx Number of Living Children 2 AB spontaneous Past Pregnancies Del. Date GA/Weeks # Preg Succ Route Wgt Sex Labor Lgth Anesth esia Location Prov Complic 06/08/16 40 No 4167.38 g Female 25 An ea/Rashad 04/14/19 39 No vaginal 3203.496 g Male [place] Delivery Date: 06/08/16 Last Updated by: Jana Ward CNM Long labor and C/S for FTP, fully dilated. Delivery Date: 04/14/19 Last Updated by: Radha Mckeon LPN Failed Trial of labor. Emergent .
[2024-02-28] MEDS: Sulfameth/Trimeth DS TAB 1 TAB PO (12:11)
[2024-02-28] MEDS: Sulfameth/Trimeth DS, 2 TABS/BTL 1 TAB PO (12:11)
== END 2024-02-28 12:13 | disposition home or self-care (01) ==
PROVIDERS: Emergency Provider Registered Nurse Emergency; PCP Physician Assistant
DX: L03.211 Cellulitis of face (principal)
CPT/HCPCS: 99283

== ENCOUNTER 2024-07-26 01:44 | Outpatient (CLI) | payer BC, SELFPAY ==
--- NOTE | 2024-07-26 | DI.RAD_ITS ---
Exam(s) XR CHEST 2V PA LATERAL EXAM: XR CHEST 2V PA LATERAL CLINICAL HISTORY: ACUTE SINUSITIS,J01.90,PROLONGED COUGH. TECHNIQUE: 2D digital imaging was performed. COMPARISON: No exams were available for comparison FINDINGS: 2 views: Heart size is normal. The mediastinum is not widened. Lungs are clear. No infiltrates nor pleural effusions. IMPRESSION: No acute pulmonary findings. DATA REPOSITORY: RADIATION DOSE DELIVERED:
== END 2024-07-26 02:04 ==
LOC: DI 01:44
PROVIDERS: PCP Physician Assistant; Visit Provider Emergency Medicine Emergency Medical Services
DX: J01.90 Acute sinusitis, unspecified (principal)
CPT/HCPCS: 71046